=== PATIENT | male | born 1960 | race Caucasian/White ===

== ENCOUNTER 2016-05-29 21:44 | Emergency (ER) | payer OTHER ==
[~2016-05-29] VITALS: Ht 172.7 cm; Wt 108.9 kg
[~2016-05-29 21:44] MED LIST: ALBUAER2 INH; HYDR-5688 PO; LEDI1TAB PO; LISI-461 PO; METF500T5 PO; MONT1TAB3 PO
[2016-05-29 21:49] VITALS: TEMP 36.9
[2016-05-29] MEDS ORDERED: SODIUM CHLORIDE 0.9% 1000ML 1,000 ML IV STA ×2 (22:02)
[2016-05-29] MEDS ORDERED: OPTIRAY 320 IV PRN (22:15)
--- NOTE | 2016-05-29 22:21 | DIAGNOSTIC IMAGING REPORT ---
CHEST ONE VIEW PORTABLE HISTORY: Sepsis COMPARISON: Chest 02/12/2009. FINDINGS: The heart is top normal in size. The lungs are clear. No pleural effusions. No pneumothorax. IMPRESSION: No acute process. Electronically signed by: Richard Gonzalez M.D. 05/29/2016 10:19 PM Dictated Date/Time: 05/29/2016 10:18 PM
[2016-05-29] MEDS ORDERED: VNTHFA/IN INH (22:23)
[2016-05-29] MEDS ORDERED: SNG10 PO (22:23)
[2016-05-29] MEDS ORDERED: FLUT1INH INH (22:23)
[2016-05-29] MEDS ORDERED: LSN20 PO (22:23)
[2016-05-29 22:25] VITALS: Ht 172.7 cm; Wt 108.9 kg
[2016-05-29 22:26] VITALS: O2SAT 96
[2016-05-29] MEDS ORDERED: PRED10TA PO (22:27)
[2016-05-29 22:55] LABS: ISTAT CREATININE 0.7 mg/dl (0.6-1.3); ISTAT HEMOGLOBIN 14.3 g/dl (14.0-18.0); ISTAT IONIZED CALCIUM 1.17 mmol/l (1.12-1.32)
[2016-05-29 23:00] LABS: BASO % 0.3 %; BASO ABS # 0.02 K/uL (0-0.2); COMPLETE YES; EOS % 0.7 %; HEMATOCRIT 42.1 % (42-52); IG% 0.2 %; LYMPH % 23.3 %; MEAN CELL VOLUME 85.9 fL (80-100); MEAN CORPUSCULAR HEMOGLOBIN 30.2 pg (25-34); MEAN CORPUSCULAR HGB CONC 35.2 g/dl (32-36); MEAN PLATELET VOLUME 10.1 fL (7.4-10.4); MONO % 6.2 %; NEUT % 69.3 %; PLATELET COUNT 103 K/uL (130-400); WHITE BLOOD COUNT 6.01 K/uL (4.8-10.8)
[2016-05-29 23:08] LABS: PROTHROMBIN TIME (PATIENT) 10.8 SECONDS (9.0-12.0)
[2016-05-29 23:24] LABS: ALT/SGPT 45 U/L (12-78); AST/SGOT 24 U/L (15-37); BLOOD UREA NITROGEN 16 mg/dl (7-18); BUN/CREATININE RATIO 16.6 (10-20); CARBON DIOXIDE 27 mmol/L (21-32); CHLORIDE 102 mmol/L (98-107); CREATININE 0.99 mg/dl (0.60-1.40); GLUCOSE 150 mg/dl (70-99); MAGNESIUM 1.9 mg/dl (1.8-2.4); POTASSIUM 3.8 mmol/L (3.5-5.1); SODIUM 141 mmol/L (136-145)
[2016-05-29 23:30] LABS: ALB/GLOB RATIO 0.8 (0.9-2); ALKALINE PHOSPHATASE 71 U/L (45-117); CKMB/CK RATIO 1.5 (0-3.0)
[2016-05-30] MEDS ORDERED: MoRPHine SULFATE 4 MG/ML 1 ML CARP\\VIAL IV STA (00:05)
[2016-05-30] MEDS ORDERED: ONDANSETRON INJ 2 MG/ML 2 ML VIAL IV STA (00:05)
[2016-05-30 00:17] LABS: MANUAL MICROSCOPIC REQUIRED? NO; REVIEW REQ? NO; URINE APPEARANCE CLEAR (CLEAR); URINE BILIRUBIN NEG (NEG); URINE COLOR YELLOW; URINE NITRITE NEG (NEG); URINE SPECIFIC GRAVITY 1.042 (1.000-1.030); UROBILINOGEN NEG (NEG); ZZUR CULT IF INDIC CLEAN CATCH YES
[2016-05-30] MEDS ORDERED: CEFTRIAXONE SOD INJ 1 GM ADDVIAL IV STA (00:29)
[2016-05-30 00:47] LABS: INFLUENZA A PCR Neg for Influ A (NEG); INFLUENZA B PCR Neg for Influ B (NEG)
[2016-05-30 02:36] VITALS: BP 172/83; PULSE 82; O2SAT 93
--- NOTE | 2016-05-30 02:48 | EMERGENCY ROOM VISIT NOTE ---
History First contact with patient: 21:53 Chief Complaint: HYPERGLYCEMIA Stated Complaint: DIABETES, SUGAR 300 FOR 3 DAYS Nursing Triage Summary: Pt states DM II, BSG over 300 since Mon evening. Nauseated. Abd pain. Pt states , "I just feel dazed and confused." History of Present Illness The patient is a 56 year old male who presents to the Emergency Room with complaints of polydipsia, polyuria, diplopia, high sugars, left lower quadrant abdominal pain, feeling dazed and confused for the past few days. Patient just finished hepatitis C treatment one month ago. Patient just finished Tamiflu a few days ago for possible flu by the family care doctor. He is currently on a prednisone taper pack. His sugars are in the 300s past few days. Patient had a colonoscopy last year that was normal per patient. No history diverticulitis or diverticulosis. Patient denies chest pain, dyspnea, cough, congestion, headache, vomiting, diarrhea, urinary symptoms. Review of Systems See HPI for pertinent positives & negatives. A total of 10 systems reviewed and were otherwise negative. Past Medical/Surgical History Medical Problems: (1) Diab Emilia Wo Compl, Type Ii Or Unspec Type, Not Uncntrld (2) Hyperlipidemia Nec/Nos (3) Hypertension Nos (4) Mandible Fx Nos-Closed (5) Pneumonia, Organism Nos (6) Tobacco Use Disorder Social History Smoking Status: Former Smoker Alcohol Use: occasionally Drug Use: none Marital Status: Occupation Status: employed Current/Historical Medications Scheduled Fluticasone Furoate-Vilanterol (Breo Ellipta), 1 PUFF INH DAILY Hydrocodone/Acetaminophen 5MG/325MG ([place] 5MG/325MG), 1 TAB PO BID Lisinopril (Lisinopril), 20 MG PO BID Metformin Hcl Er (Glucophage Er), 1,000 MG PO BID Montelukast Sod (Montelukast Sodium), 10 MG PO HS Prednisone (Prednisone), 10 MG PO UD Scheduled PRN Albuterol Hfa (Ventolin Hfa), 2 PUFFS INH Q4H PRN for Wheezing Allergies Coded Allergies: No Known Allergies (Verified , 02/26/16) Physical Exam Vital Signs Date Time Temp Pulse Resp B/P Pulse Ox O2 Delivery O2 Flow Rate FiO2 05/30/16 02:36 82 20 172/83 93 Room Air 05/30/16 02:00 76 178/104 96 Room Air 05/30/16 01:30 74 178/95 95 Room Air 05/30/16 01:00 74 162/82 93 Room Air 05/30/16 00:26 76 20 188/100 97 Room Air 05/29/16 22:30 78 16 220/124 97 Room Air 05/29/16 22:26 96 Room Air 05/29/16 21:49 36.9 81 18 96 Room Air Physical Exam VITALS: Vitals are noted on the nurse's note and reviewed by myself. Vital signs stable. GENERAL: Pleasant male answering questions appropriately, in no acute distress, nondiaphoretic, well-developed well-nourished. SKIN: The skin was without rashes, erythema, edema, or bruising. There is no tenting of the skin. Capillary reflex less than 2 seconds. HEAD: Normocephalic atraumatic. EARS: External auditory canals clear, tympanic membranes pearly bryan without erythema or effusion bilaterally. EYES: Pupils equal round and reactive to light and accommodation. Conjunctivae without injection, sclerae without icterus. Extraocular movements intact. NOSE: Patent, turbinates without inflammation or discharge. MOUTH: Mucous membranes moist. Pharynx without erythema or exudate. Uvula midline. Airway patent. Tongue does not deviate. NECK: Supple without nuchal rigidity. No lymphadenopathy. No thyromegaly. Cervical spine is nontender. No JVD. HEART: Regular rate and rhythm without murmurs gallops or rubs. LUNGS: Clear to auscultation bilaterally without wheezes, rales or rhonchi. No dullness to percussion. No retractions or accessory muscle use. ABDOMEN: Positive bowel sounds x 4. Normal tympanic percussion. Soft, tender to palpation left lower quadrant, protuberant, obese, no CVA tenderness, without masses or organomegaly. Epperson sign negative. No guarding or rebound tenderness. MUSCULOSKELETAL: No muscle atrophy, erythema, or edema noted. NEURO: Patient was alert and oriented to person place and time. Normal sensation to light and sharp touch. No focal neurological deficits. Medical Decision & Procedures Laboratory Results 05/29/16 22:35 Red Blood Count 4.90, Mean Corpuscular Volume 85.9, Mean Corpuscular Hemoglobin 30.2, Mean Corpuscular Hemoglobin Concent 35.2, Mean Platelet Volume 10.1, Neutrophils (%) (Auto) 69.3, Lymphocytes (%) (Auto) 23.3, Monocytes (%) (Auto) 6.2, Eosinophils (%) (Auto) 0.7, Basophils (%) (Auto) 0.3, Neutrophils # (Auto) 4.17, Lymphocytes # (Auto) 1.40, Monocytes # (Auto) 0.37, Eosinophils # (Auto) 0.04, Basophils # (Auto) 0.02 05/29/16 22:35 Test 05/29/16 21:56 05/29/16 22:28 05/29/16 22:35 05/29/16 22:37 Bedside Glucose 153 mg/dl (70-99) Influenza Type A (RT-PCR) Neg for Influ A (NEG) Influenza Type A Antigen Neg for Influ A (NEG) Influenza Type B Antigen Neg for Influ B (NEG) Influenza Type B (RT-PCR) Neg for Influ B (NEG) White Blood Count 6.01 K/uL (4.8-10.8) Red Blood Count 4.90 M/uL (4.7-6.1) Hemoglobin 14.8 g/dL (14.0-18.0) Hematocrit 42.1 % (42-52) Mean Corpuscular Volume 85.9 fL (80-100) Mean Corpuscular Hemoglobin 30.2 pg (25-34) Mean Corpuscular Hemoglobin Concent 35.2 g/dl (32-36) Platelet Count 103 K/uL (130-400) Mean Platelet Volume 10.1 fL (7.4-10.4) Neutrophils (%) (Auto) 69.3 % Lymphocytes (%) (Auto) 23.3 % Monocytes (%) (Auto) 6.2 % Eosinophils (%) (Auto) 0.7 % Basophils (%) (Auto) 0.3 % Neutrophils # (Auto) 4.17 K/uL (1.4-6.5) Lymphocytes # (Auto) 1.40 K/uL (1.2-3.4) Monocytes # (Auto) 0.37 K/uL (0.11-0.59) Eosinophils # (Auto) 0.04 K/uL (0-0.5) Basophils # (Auto) 0.02 K/uL (0-0.2) RDW Standard Deviation 43.8 fL (36.4-46.3) RDW Coefficient of Variation 14.1 % (11.5-14.5) Immature Granulocyte % (Auto) 0.2 % Immature Granulocyte # (Auto) 0.01 K/uL (0.00-0.02) Prothrombin Time 10.8 SECONDS (9.0-12.0) Prothromb Time International Ratio 1.0 (0.9-1.1) Activated Partial Thromboplast Time 25.0 SECONDS (21.0-31.0) Partial Thromboplastin Ratio 1.0 Est Creatinine Clear Calc Drug Dose 98.5 ml/min Estimated GFR () 97.6 Estimated GFR (Non- 84.2 BUN/Creatinine Ratio 16.6 (10-20) Calcium Level 9.0 mg/dl (8.5-10.1) Magnesium Level 1.9 mg/dl (1.8-2.4) Total Bilirubin 0.7 mg/dl (0.2-1) Aspartate Amino Transf (AST/SGOT) 24 U/L (15-37) Alanine Aminotransferase (ALT/SGPT) 45 U/L (12-78) Alkaline Phosphatase 71 U/L (45-117) Total Creatine Kinase 94 U/L (39-308) Creatine Kinase MB 1.4 ng/ml (0.5-3.6) Creatine Kinase MB Ratio 1.5 (0-3.0) Troponin I < 0.015 ng/ml (0-0.045) Total Protein 8.2 gm/dl (6.4-8.2) Albumin 3.7 gm/dl (3.4-5.0) Globulin 4.5 gm/dl (2.5-4.0) Albumin/Globulin Ratio 0.8 (0.9-2) Bedside Hemoglobin 14.3 g/dl (14.0-18.0) Bedside Hematocrit 42 % (42-52) Bedside Sodium 138 mEq/L (135-144) Bedside Potassium 3.9 mEq/L (3.3-5.0) Bedside Chloride 99 mEq/L (101-112) Bedside Total CO2 25 mEq/l (24-31) Anion Gap 19.0 mmol/L (16-25) Bedside Blood Urea Nitrogen 17 mg/dl (7-18) Bedside Creatinine 0.7 mg/dl (0.6-1.3) Bedside Glucose (other) 171 mg/dl (70-99) Bedside Ionized Calcium (Lyle) 1.17 mmol/l (1.12-1.32) Test 05/29/16 23:10 05/29/16 23:45 05/30/16 01:27 Ammonia 21.0 umol/L (11-32) Urine Color YELLOW Urine Appearance CLEAR (CLEAR) Urine pH 6.0 (4.5-7.5) Urine Specific [place] 1.042 (1.000-1.030) Urine Protein NEG (NEG) Urine Glucose (UA) TRACE (NEG) Urine Ketones NEG (NEG) Urine Occult Blood NEG (NEG) Urine Nitrite NEG (NEG) Urine Bilirubin NEG (NEG) Urine Urobilinogen NEG (NEG) Urine Leukocyte Esterase MODERATE (NEG) Urine WBC (Auto) 10-30 /hpf (0-5) Urine RBC (Auto) 0-4 /hpf (0-4) Urine Hyaline Casts (Auto) 0 /lpf (0-5) Urine Epithelial Cells (Auto) 5-10 /lpf (0-5) Urine Bacteria (Auto) NEG (NEG) Bedside Lactic Acid Venous 0.90 mmol/L (0.90-1.70) Medications Administered Medications (Trade) Dose Ordered Sig/Dominique Route Start Time Stop Time Status Last Admin Dose Admin Sodium Chloride 1,000 ml @ 999 mls/hr Q1H1M STAT IV 05/29/16 22:02 05/29/16 23:02 DC 05/29/16 22:38 999 MLS/HR Sodium Chloride (Nss 1000ml) 1,000 ml @ 125 mls/hr Q8H STAT IV 05/29/16 22:02 05/30/16 06:01 05/29/16 22:38 125 MLS/HR Morphine Sulfate (MoRPHine SULFATE INJ) 4 mg NOW STAT IV 05/30/16 00:05 05/30/16 00:06 DC 05/30/16 00:31 4 MG Ondansetron HCl (Zofran Inj) 4 mg NOW STAT IV 05/30/16 00:05 05/30/16 00:06 DC 05/30/16 00:31 4 MG Ceftriaxone Sodium (Rocephin Inj) 1 gm NOW STAT IV 05/30/16 00:29 05/30/16 00:30 DC 05/30/16 01:00 1 GM ED Course Prior records/ancillary studies reviewed. Triage Nursing notes reviewed. The patient's history was concerning for abdominal pain with hyperglycemia and feeling confused. Differential diagnosis: Etiologies such as appendicitis, encephalopathic, DKA, diverticulitis, PUD, biliary pathology, UTI, pancreatitis, obstruction, mesenteric ischemia, aortic pathology, infections, inflammatory bowel disease, renal colic, as well as others were entertained. Physical examination findings: As above. ER treatment provided: IV fluids On reassessment the patient felt better. Diagnostics interpreted by me: ECG: Normal sinus, left axis deviation, incomplete right bundle branch block, no acute ST-T wave changes, rate of 80. Impression incomplete right bundle branch block with left anterior vesicular block interpreted by myself The labs revealed hyperglycemia without DKA. Mildly elevated lactic. Negative troponin. Imaging studies: CHEST ONE VIEW PORTABLE HISTORY: Sepsis COMPARISON: Chest 02/12/2009. FINDINGS: The heart is top normal in size. The lungs are clear. No pleural effusions. No pneumothorax. IMPRESSION: No acute process. Electronically signed by: Richard Gonzalez M.D. No priors CT HEAD: No acute intracranial finding CT ABDOMEN & PELVIS: Cardiomegaly. Hiatal hernia. Suspected atelectasis and/or scar. Questionable tiny nodular opacities at lung bases versus foci of atelectasis and/or scar. Cirrhotic morphology to liver. Splenomegaly compatible with portal hypertension. Perhaps some segments of small bowel stasis but no bowel obstruction. Diverticulosis. No diverticulitis, appendicitis or other acute intra-abdominal process is appreciated. Radiologist: Robert Hill M.D. Exam and history seem consistent with UTI with hyperglycemia most likely from recent steroid use. Repeat lactate was negative. His is most likely elevated due to dehydration from hyperglycemia. Patient was hydrated as above. Patient had bladder infections before. He has had penile surgeries before. Patient was advised to take antibiotics as directed, rest, stay well-hydrated and to monitor his blood sugars. The urine culture was sent. He was advised follow- up family care in a few days or here in the ER sooner for fevers, high blood sugars, chest pain, back pain, worsening signs or symptoms or as needed.By the evaluation outlined above emergent etiologies such as appendicitis, diverticulitis, PUD, biliary pathology, pancreatitis, obstruction, mesenteric ischemia, aortic pathology, inflammatory bowel disease, renal colic, as well as others were deemed relatively unlikely. The pt informed about the findings as listed above. All questions were answered and pleased with the treatment. Return instructions were outlined and the patient was discharged in stable condition. Outpatient prescription management: Bactrim Referral: The patient was referred back to their primary care physician for follow-up in 2 to 3 days for a recheck of the current condition. Case reviewed with my attending. Medical Decision As above Impression Primary Impression: UTI (urinary tract infection) Additional Impressions: Abdominal pain, left lower quadrant Hyperglycemia due to type 2 diabetes mellitus Departure Information Dispostion Home / Self-Care Condition GOOD Referrals Jude Vickers M.D. (PCP) Patient Instructions My [facility] Additional Instructions DO NOT drive, drink alcohol, operate machinery, or perform dangerous activities today. You were given medications in the ER that can affect your ability to safely function or operate a vehicle. Monitor your blood sugar. Drink plenty of fluids to flush your bladder. Trimethoprim-Sulfamethoxazole(Bactrim DS): Take one pill twice daily for 7 days for your urine infection. All antibiotics can cause diarrhea. If this occurs and you feel worse or it does not resolve in 1-2 days follow up with your doctor or return to the Emergency Department as this could be signs of serious underlying problems. Any medication can cause an allergic reaction, stop the pills immediately and return to the ER for rash, hives, breathing difficulties, or swelling. Zofran 4 mg: Take one every six hours as needed for nausea. Avoid alcohol, operating machinery or dangerous equipment, working on ladders or roofs, DRIVING , or situations where being under the influence may be dangerous. Ibuprofen(Motrin, Advil) may be used for fever or pain. Use 600mg every six hours as needed. Take with food. Avoid using more than 2400mg in a 24 hour period. Do not use 2400mg per day for more than three consecutive days without physician direction. Prolonged inappropriate use can lead to stomach upset or ulcers. (AND/OR) Acetaminophen(Tylenol) may be used for fever or pain. Use 1000mg every six hours as needed. Avoid using more than 3000mg in a 24 hour period. Rest and drink plenty of fluids as tolerated. Slow sips of water or sports drinks are recommended instead of large amounts all at once. Continue current medications. Once your stomach is settled start with a clear liquid diet (jello, soup broth, etc.) and then advance as tolerated. You should avoid full, heavy meals for about 24 hrs from the time your symptoms resolved. Return to the ER immediately for worsening or persistent abdominal/back pain, vomiting, fevers, worsening of your condition, or as needed. Follow up with your primary physician within 2-3 days for a recheck of the current condition. Problem Qualifiers Primary Impression: UTI (urinary tract infection) Urinary tract infection type: acute cystitis Hematuria presence: without hematuria Qualified Codes: N30.00 - Acute cystitis without hematuria
[2016-05-30] MEDS ORDERED: SULF800T23 PO (02:50)
[2016-05-30] MEDS ORDERED: ONDANSETRON HOME PACK 4MG OD TAB PO ONE (03:00)
[2016-05-30] MEDS ORDERED: SEPTRA DS HOME PACK 1 EA VIAL PO ONE (03:00)
--- NOTE | 2016-05-30 06:26 | DIAGNOSTIC IMAGING REPORT ---
HEAD CT NONCONTRAST CT DOSE: 2364.86 mGy.cm HISTORY: Headache confused, recent Hep C txt TECHNIQUE: Multiaxial CT images of the head were performed without the use of intravenous contrast. Comparison: None. Findings: The paranasal sinuses and mastoid air cells are clear. The calvarium and skull base are intact. The ventricles and sulci are within normal limits. There is no mass, hematoma, midline shift, or acute infarct. Impression: No acute intracranial abnormality. Electronically signed by: Jude Carnes M.D. 05/30/2016 6:25 AM Dictated Date/Time: 05/30/2016 6:24 AM
--- NOTE | 2016-05-30 06:41 | DIAGNOSTIC IMAGING REPORT ---
CT OF THE ABDOMEN AND PELVIS WITH CONTRAST CLINICAL HISTORY: Left lower quadrant pain. Confusion. Hepatitis C. COMPARISON STUDY: None. TECHNIQUE: Following IV administration of 92 mL of Optiray-320, axial images of the abdomen and pelvis were obtained from the lung bases to the proximal femurs. Images were reviewed in the axial, sagittal, and coronal planes. IV contrast was administered without complication. FINDINGS: Visualized portions of the lower lungs demonstrate mild groundglass opacities, greater within the right lung. A few nodular opacities are present. There is no pneumatosis, free air or portal venous gas. The heart is moderately enlarged. The liver is cirrhotic. Sensitivity for detection of hypervascular lesions is diminished on this exam. No hepatic lesions are identified. The main, left and right portal veins are patent. There is moderate splenomegaly. The adrenal glands, kidneys and pancreas are normal. There is no hydronephrosis. There are small collaterals, including paraesophageal varices. There is no evidence for a bowel obstruction. There is left colon diverticulosis without evidence for acute diverticulitis. There is no ascites. There is no lymphadenopathy. No suspicious skeletal lesions are identified. IMPRESSION: 1. Cirrhosis with manifestations of portal hypertension including moderate splenomegaly and varices formation. 2. No acute process within the abdomen or pelvis. 3. Mild groundglass and tree-in-bud nodules within visualized portions of the right lower and middle lobes. This could reflect atelectasis or a mild infectious process such to bronchiolitis. Electronically signed by: Dusty George M.D. 05/30/2016 6:40 AM Dictated Date/Time: 05/30/2016 6:34 AM
[2016-06-01] MEDS ORDERED: AMLO-110 PO (14:51)
[2016-06-01] MEDS ORDERED: LEVO-459 PO (14:51)
== END 2016-05-30 03:00 | disposition home or self-care (01) ==
LOC: C.EDB 21:45 → C.EDC 05-30 03:00
DX: N30.00 Acute cystitis without hematuria (principal); R10.32 Left lower quadrant pain; E11.65 Type 2 diabetes mellitus with hyperglycemia; E78.5 Hyperlipidemia, unspecified; I10 Essential (primary) hypertension; Z87.891 Personal history of nicotine dependence; Z79.52 Long term (current) use of systemic steroids; Z79.899 Other long term (current) drug therapy

== ENCOUNTER 2016-05-30 09:38 | Observation (INO) | payer OTHER ==
[~2016-05-30] VITALS: Ht 172.7 cm; Wt 110.1 kg
[~2016-05-30 09:38] MED LIST changes: -ALBUAER2 INH; +FLUT1INH INH; -LEDI1TAB PO; -LISI-461 PO; +LSN20 PO; -MONT1TAB3 PO; +PRED10TA PO; +SNG10 PO; +SULF800T23 PO; +VNTHFA/IN INH
[2016-05-30] MEDS ORDERED: ONDANSETRON INJ 2 MG/ML 2 ML VIAL IV STA (10:47)
[2016-05-30] MEDS ORDERED: SODIUM CHLORIDE 0.9% 1000ML 1,000 ML IV ONE (10:47)
[2016-05-30] MEDS ORDERED: VANCOMYCIN 1GM/270ML NSS IV STA (10:47)
[2016-05-30] MEDS ORDERED: PIPERACILLIN/TAZOBACTAM 4.5 GM/100ML D5W IV STA (10:47)
[2016-05-30] MEDS ORDERED: METHYLPREDNISOLONE 125 MG VIAL IV STA (10:47)
[2016-05-30] MEDS ORDERED: DiphenhydrAMINE HCL 50 MG/ML VIAL IV STA (10:47)
[2016-05-30] MEDS ORDERED: RANITIDINE HCL 150 MG TAB PO STA (10:47)
--- NOTE | 2016-05-30 10:57 | EMERGENCY ROOM VISIT NOTE ---
History Report prepared by Carlitos: Eddi Arredondo Under the Supervision of: Dr. Manuel Velez M.D. First contact with patient: 09:57 Chief Complaint: ALLERGIC REACTION Stated Complaint: ALLERGIC REACTION TO MEDICATION GIVEN IN THE ER Nursing Triage Summary: Nausea, dizzy, neck and abdominal pain. "I think I'm allergic to something they gave me last night." per the pt. pt reports here last night for high bsg and bp treated and released. returned today for back and adb pain. pt is red all over. took 1 benadryl and 1 vicodin for pain this am at 0700 History of Present Illness The patient is a 56 year old male who presents to the Emergency Room with complaints of an acute allergic reaction that started last night. The patient complains of itchy red skin which started after taking Bactrim. He was started on Bactrim last night after being diagnosed with a UTI . The patient also complains of upper respiratory symptoms and hyperglycemia. The patient denies any ulcers of the mouth. The patient is currently nauseous, and also complains of neck and back pain. Source of History: patient Onset: last night Position: other (global) Quality: other (allergic reaction) Timing: other (acute) Associated Symptoms: + back pain, + nausea, + neck pain, + rash Review of Systems See HPI for pertinent positives & negatives. A total of 10 systems reviewed and were otherwise negative. Past Medical & Surgical Medical Problems: (1) COPD (chronic obstructive pulmonary disease) (2) Diab Emilia Wo Compl, Type Ii Or Unspec Type, Not Uncntrld (3) DM type 2 (diabetes mellitus, type 2) (4) Hepatitis C (5) HTN (hypertension) (6) Hyperlipidemia Nec/Nos (7) Hypertension Nos (8) Mandible Fx Nos-Closed (9) Pneumonia, Organism Nos (10) Tobacco Use Disorder (11) Urethral stricture Family History No pertinent family history Social History Smoking Status: Former Smoker Alcohol Use: occasionally Drug Use: none Marital Status: Occupation Status: employed Current/Historical Medications Scheduled Fluticasone Furoate-Vilanterol (Breo Ellipta), 1 PUFF INH DAILY Hydrocodone/Acetaminophen 5MG/325MG (Mammoth 5MG/325MG), 1 TAB PO BID Lisinopril (Lisinopril), 20 MG PO BID Metformin Hcl Er (Glucophage Er), 1,000 MG PO BID Montelukast Sod (Montelukast Sodium), 10 MG PO HS Sulfa/Trimethoprim (Bactrim Ds 800MG/160MG), 1 TAB PO BID Scheduled PRN Albuterol Hfa (Ventolin Hfa), 2 PUFFS INH Q4H PRN for Wheezing Allergies Coded Allergies: Sulfamethoxazole w/Trimethoprim (Unverified Allergy, Unknown, RASH, UPSET STOMACH, 05/30/16) Physical Exam Vital Signs Date Time Temp Pulse Resp B/P Pulse Ox O2 Delivery O2 Flow Rate FiO2 05/30/16 17:00 36.8 84 18 124/74 92 Room Air 05/30/16 16:54 87 18 139/68 94 05/30/16 16:30 111 18 157/70 96 Room Air 05/30/16 14:31 106 127/58 93 05/30/16 13:30 97 Room Air 05/30/16 12:28 109 18 123/59 98 Nebulizer 7.0 05/30/16 11:35 104 14 97 Room Air 05/30/16 11:30 103 155/74 95 05/30/16 10:56 96 Room Air 05/30/16 10:28 103 05/30/16 10:18 93 Room Air 05/30/16 09:48 36.8 90 20 115/78 93 Room Air Physical Exam GENERAL: Patient is a healthy-appearing well-nourished HEAD: Normocephalic atraumatic EYES: Ocular movements intact pupils equal and react to light OROPHARYNX mucous membranes are moist no exudates present no erythema or edema present. No oral mucosal lesions on exam. NECK: Supple no nuchal rigidity CHEST: Good equal expansion LUNGS: Clear and equal to auscultation CARDIAC: Normal S1 and S2 ABDOMEN: Soft nontender no guarding BACK: No CVA tenderness EXTREMITIES: No pain upon palpation normal muscle strength in all groups no clubbing cyanosis or edema NEURO: Patient is following commands is answering questions appropriately. Alert and oriented x3 Cranial Nerves 2-12 grossly intact Medical Decision & Procedures ER Provider Diagnostic Interpretation: X-ray results as stated below per interpretation by me and the radiologist: CHEST ONE VIEW PORTABLE HISTORY: Sepsis COMPARISON: Chest 05/29/2016. FINDINGS: The heart remains mildly enlarged. No focal lung consolidations. No evidence for pulmonary edema. No pleural effusions. No pneumothorax. Faint patchy density right lung base. IMPRESSION: 1. Patchy density at the right lung base which may represent a developing pneumonitis. 2. Mild cardiomegaly, unchanged. Electronically signed by: Richard Gonzalez M.D. 05/30/2016 12:28 PM Dictated Date/Time: 05/30/2016 12:26 PM Laboratory Results Test 05/30/16 10:00 05/30/16 11:37 05/30/16 12:25 05/30/16 13:23 Immature Granulocyte % (Auto) 0.4 % White Blood Count 9.76 K/uL (4.8-10.8) Red Blood Count 5.20 M/uL (4.7-6.1) Hemoglobin 15.8 g/dL (14.0-18.0) Hematocrit 44.9 % (42-52) Mean Corpuscular Volume 86.3 fL (80-100) Mean Corpuscular Hemoglobin 30.4 pg (25-34) Mean Corpuscular Hemoglobin Concent 35.2 g/dl (32-36) Platelet Count 163 K/uL (130-400) Mean Platelet Volume 11.0 fL (7.4-10.4) Neutrophils (%) (Auto) 83.9 % Lymphocytes (%) (Auto) 12.7 % Monocytes (%) (Auto) 2.7 % Eosinophils (%) (Auto) 0.3 % Basophils (%) (Auto) 0.0 % Neutrophils # (Auto) 8.19 K/uL (1.4-6.5) Lymphocytes # (Auto) 1.24 K/uL (1.2-3.4) Monocytes # (Auto) 0.26 K/uL (0.11-0.59) Eosinophils # (Auto) 0.03 K/uL (0-0.5) Basophils # (Auto) 0.00 K/uL (0-0.2) Immature Granulocyte # (Auto) 0.04 K/uL (0.00-0.02) Prothrombin Time 11.1 SECONDS (9.0-12.0) Prothromb Time International Ratio 1.0 (0.9-1.1) Activated Partial Thromboplast Time 23.4 SECONDS (21.0-31.0) Partial Thromboplastin Ratio 0.9 Total Bilirubin 1.0 mg/dl (0.2-1) Aspartate Amino Transf (AST/SGOT) 42 U/L (15-37) Alanine Aminotransferase (ALT/SGPT) 59 U/L (12-78) Alkaline Phosphatase 70 U/L (45-117) Total Protein 7.8 gm/dl (6.4-8.2) Albumin 3.5 gm/dl (3.4-5.0) Globulin 4.3 gm/dl (2.5-4.0) Albumin/Globulin Ratio 0.8 (0.9-2) Bedside Lactic Acid Venous 2.45 mmol/L (0.90-1.70) Urine Color DK YELLOW Urine Appearance CLOUDY (CLEAR) Urine pH 5.0 (4.5-7.5) Urine Specific Warren 1.045 (1.000-1.030) Urine Protein NEG (NEG) Urine Glucose (UA) NEG (NEG) Urine Ketones TRACE (NEG) Urine Occult Blood NEG (NEG) Urine Nitrite POS (NEG) Urine Bilirubin NEG (NEG) Urine Urobilinogen NEG (NEG) Urine Leukocyte Esterase MODERATE (NEG) Urine WBC (Auto) 10-30 /hpf (0-5) Urine RBC (Auto) 0-4 /hpf (0-4) Urine Hyaline Casts (Auto) 5-10 /lpf (0-5) Urine Epithelial Cells (Auto) 10-20 /lpf (0-5) Urine Bacteria (Auto) 1+ (NEG) Urine Renal Epithelial Cells /lpf (0-5) Urine Crystals CALCIUM OXALATE (NONE Urine Pathogenic Casts /lpf (0) Influenza Type A (RT-PCR) Uninterpretable (NEG) Influenza Type A Antigen Uninterpretable (NEG) Influenza Type B Antigen Uninterpretable (NEG) Influenza Type B (RT-PCR) Uninterpretable (NEG) Labs reviewed by ED physician. Medications Administered Medications (Trade) Dose Ordered Sig/Dominique Route Start Time Stop Time Status Last Admin Dose Admin Sodium Chloride (Nss 1000ml) 1,000 ml @ 999 mls/hr Q1H1M ONCE IV 05/30/16 10:47 05/30/16 11:47 DC 05/30/16 11:19 999 MLS/HR Piperacillin Sod/ Tazobactam Sod (Zosyn Iv) 4.5 gm ONE STAT IV 05/30/16 10:47 05/30/16 10:53 DC 05/30/16 11:27 4.5 GM Vancomycin HCl (Vancomycin 1gm/ 270ml Nss) 1 gm ONE STAT IV 05/30/16 10:47 05/30/16 10:53 DC 05/30/16 12:00 1 GM Methylprednisolone Sodium Succinate (Solu-Medrol IV) 125 mg NOW STAT IV 05/30/16 10:47 05/30/16 10:53 DC 05/30/16 11:20 125 MG Diphenhydramine HCl (Benadryl Inj) 50 mg NOW STAT IV 05/30/16 10:47 05/30/16 10:53 DC 05/30/16 11:22 50 MG Ranitidine HCl (zANTac TAB) 150 mg NOW STAT PO 05/30/16 10:47 05/30/16 10:53 DC 05/30/16 11:23 150 MG Ondansetron HCl (Zofran Inj) 4 mg NOW STAT IV 05/30/16 10:47 05/30/16 10:53 DC 05/30/16 11:20 4 MG Albuterol/ Ipratropium 12 ml 12 ml ONE ONCE INH 05/30/16 11:00 05/30/16 11:01 DC 05/30/16 11:34 12 ML Sodium Chloride (Nss 1000ml) 1,000 ml @ 100 mls/hr Q10H IV 05/30/16 14:00 06/29/16 13:59 05/31/16 05:45 100 MLS/HR Albuterol/ Ipratropium (Duoneb) 3 ml QIDR INH 05/30/16 16:00 06/29/16 15:59 05/31/16 07:21 3 ML ECG Indication: nausea Rate (beats per minute): 104 Rhythm: sinus tachycardia Findings: PVC, no acute ischemic change ED Course 1044: Past medical records reviewed. The patient was evaluated in room A11b. A complete history and physical examination was performed. 1047: Zofran 4 mg IV, Zantac 150 mg PO, Benadryl 50 mg IV, Solu-Medrol 125 mg IV , Vancomycin 1 gm / 270 ml NSS IV, Zosyn 4.5 gm IV, NSS 1000 ml @ 999 mls/hr. 1100: DuoNeb 12 ml INH. 1316: Spoke with Magan Power Hospitalist. The patient will be evaluated. Medical Decision Differential diagnosis: Etiologies such as allergic reaction, anaphylaxis, urticaria, Bateman-Karan syndrome, toxic epidermal necrolysis, erythema multiforme, cellulitis, as well as others were entertained. This is a 56-year-old male who presents emergency department complaining of allergic reaction. The patient recently started Bactrim and has a diffuse red rash all over his body. In addition the patient also has a urinary tract infection as well as an upper respiratory tract infection. Based on these findings, the patient was given Solu-Medrol as well as antibiotics. Repeat examination revealed improvement the patient's symptoms. As Bateman-Karan is certainly in the differential I feel that the patient should probably be admitted at least for observation. I did discuss the case with the hospitalist service who were in agreement with treatment plan. Consults Time Called: 1309 Consulting Physician: Magan Power Returned Call: [phone]: Spoke with Magan Power. The patient will be evaluated Impression Primary Impression: Allergic reaction Additional Impressions: UTI (urinary tract infection) URI (upper respiratory infection) Scribe Attestation The scribe's documentation has been prepared under my direction and personally reviewed by me in its entirety. I confirm that the note above accurately reflects all work, treatment, procedures, and medical decision making performed by me. Departure Information Dispostion Being Evaluated By Hospitalist Referrals Jude Vickers M.D. (PCP) Patient Instructions My [facility] Problem Qualifiers Primary Impression: Allergic reaction Encounter type: initial encounter Qualified Codes: T78.40XA - Allergy, unspecified, initial encounter Additional Impressions: UTI (urinary tract infection) Urinary tract infection type: acute cystitis Hematuria presence: without hematuria Qualified Codes: N30.00 - Acute cystitis without hematuria URI (upper respiratory infection) URI type: unspecified viral URI Qualified Codes: J06.9 - Acute upper respiratory infection, unspecified; B97.89 - Other viral agents as the cause of diseases classified elsewhere
[2016-05-30] MEDS ORDERED: ALBUT/IPRATROP 3MG/0.5MG NEB 3 ML VIAL INH ONE (11:00)
[2016-05-30 11:11] LABS: PARTIAL THROMBOPLASTIN RATIO 0.9; PROTHROMBIN TIME (PATIENT) 11.1 SECONDS (9.0-12.0)
[2016-05-30 11:14] LABS: BUN/CREATININE RATIO 12.7 (10-20); CALCIUM 8.8 mg/dl (8.5-10.1); CREATININE 1.4 mg/dl (0.60-1.40); POTASSIUM 3.7 mmol/L (3.5-5.1)
[2016-05-30 11:17] LABS: ALB/GLOB RATIO 0.8 (0.9-2)
[2016-05-30 11:24] LABS: COMPLETE YES; EOS % 0.3 %; HEMATOCRIT 44.9 % (42-52); IG% 0.4 %; LYMPH % 12.7 %; LYMPH ABS # 1.24 K/uL (1.2-3.4); MEAN CELL VOLUME 86.3 fL (80-100); MEAN CORPUSCULAR HEMOGLOBIN 30.4 pg (25-34); MEAN CORPUSCULAR HGB CONC 35.2 g/dl (32-36); MONO % 2.7 %; NEUT % 83.9 %; PLATELET COUNT 163 K/uL (130-400); WHITE BLOOD COUNT 9.76 K/uL (4.8-10.8)
[2016-05-30 11:35] VITALS: PULSE 104; O2SAT 97
--- NOTE | 2016-05-30 12:30 | DIAGNOSTIC IMAGING REPORT ---
CHEST ONE VIEW PORTABLE HISTORY: Sepsis COMPARISON: Chest 05/29/2016. FINDINGS: The heart remains mildly enlarged. No focal lung consolidations. No evidence for pulmonary edema. No pleural effusions. No pneumothorax. Faint patchy density right lung base. IMPRESSION: 1. Patchy density at the right lung base which may represent a developing pneumonitis. 2. Mild cardiomegaly, unchanged. Electronically signed by: Richard Gonzalez M.D. 05/30/2016 12:28 PM Dictated Date/Time: 05/30/2016 12:26 PM
[2016-05-30 12:36] LABS: URINE APPEARANCE CLOUDY (CLEAR); URINE COLOR DK YELLOW; URINE NITRITE POS (NEG); URINE SPECIFIC GRAVITY 1.045 (1.000-1.030); UROBILINOGEN NEG (NEG); ZZUR CULT IF INDIC CLEAN CATCH YES
[2016-05-30 13:00] LABS: MANUAL MICROSCOPIC REQUIRED? NO; REVIEW REQ? YES; URINE BILIRUBIN NEG (NEG)
[2016-05-30 13:30] VITALS: O2SAT 97; BMI 36.9
[2016-05-30] MEDS ORDERED: ACETAMINOPHEN 325 MG TAB PO PRN (14:00)
[2016-05-30] MEDS ORDERED: ONDANSETRON INJ 2 MG/ML 2 ML VIAL IV PRN (14:00)
[2016-05-30] MEDS ORDERED: GLUCAGON FOR INJ 1 MG VIAL SQ PRN (14:15)
[2016-05-30] MEDS ORDERED: GLUCOSE 40% GEL 15 GM TUBE PO PRN (14:15)
[2016-05-30] MEDS ORDERED: DEXTROSE 50% 50 ML SYR IV PRN (14:15)
[2016-05-30] MEDS ORDERED: GLUCOSE 10 TABS/TUBE PO PRN (14:15)
[2016-05-30] MEDS ORDERED: IV FLUIDS COMPLETED PRN (14:30)
--- NOTE | 2016-05-30 14:32 | Pharmacy Progress Note ---
ED Pharmacist Progress Note Date of Service: May 30, 2016. Allergy assessment Subjective * Patient reports he took pills at 0700 today, including Bactrim. He noted this is the first dose of the Bactrim he took that was provided for him by ED ( home pack). Within 5 minutes, had severe coughing, SOB, chest tightness, rash. * Patient reports he does not remember ever having a rash before, independent of whether he was on antibiotics at the time Objective Medication administration history * Bactrim * 10 day course prescribed in 2008 for L pinna infection * Ceftriaxone * 1x dose in 2010 * 1x dose 05/30/16 @ 0100 in ED * Cephalexin * 10 day course prescribed in 2008 for L pinna infection * ED home pack provided in 2009 Assessment * Ceftriaxone allergy potential * Patient received one-time dose prior, which may have sensitized him. No reaction at that time does not eliminate potential for immediate hypersensitivity reaction as this was only a one-time dose. * Current symptoms manifested 6 hr after administration * Most immediate hypersensitivity reactions occur within 1 hr, but can take up to 72 hours * Bactrim allergy potential * No reaction reported from previous 10 day course * Current symptoms manifested 5 minutes after administration * Bateman-Karan reaction usually will not manifest until at least 48 hours in patients who have been exposed previously * Beta-lactam allergy (other than ceftriaxone) potential * Patient has received cephalexin on two separate occasions in 2008, 2009. No reaction reported. * If patient has a true allergy to ceftriaxone (per above), they still may be able to tolerate other beta-lactams (but should be monitored closely) Conclusion * Cannot conclusively determine cause of symptoms, but could be due to one of the following: * Ceftriaxone * Bactrim
[2016-05-30] MEDS ORDERED: PHARMACY GLYCEMIC MGMT CONSULT SCH (14:43)
[2016-05-30] MEDS ORDERED: DiphenhydrAMINE HCL 50 MG/ML VIAL IV PRN (14:45)
[2016-05-30] MEDS ORDERED: ALBUT/IPRATROP 3MG/0.5MG NEB 3 ML VIAL INH PRN (15:00)
--- NOTE | 2016-05-30 15:24 | Pharmacy Progress Note ---
Glycemic Control Intl Consult Date of Service May 30, 2016. Scope Glycemic Pharmacist consulted by Dr. Reeves on 05/30/16 for glycemic control and to write orders per [facility] inpatient glycemic control protocol Objective Weight (Kilograms): 110.100 Accuchecks BSG (last 24hrs): Test 05/30/16 10:00 Random Glucose 227 mg/dl (70-99) Laboratory Data (last 24hrs) Test 05/30/16 10:00 Anion Gap 10.0 mmol/L BUN/Creatinine Ratio 12.7 Blood Urea Nitrogen 18 mg/dl Creatinine 1.40 mg/dl Potassium Level 3.7 mmol/L Sodium Level 137 mmol/L White Blood Count 9.76 K/uL Red Blood Count 5.20 M/uL Hemoglobin 15.8 g/dL Hematocrit 44.9 % Mean Corpuscular Volume 86.3 fL Mean Corpuscular Hemoglobin 30.4 pg Mean Corpuscular Hemoglobin Concent 35.2 g/dl Platelet Count 163 K/uL Mean Platelet Volume 11.0 fL Neutrophils (%) (Auto) 83.9 % Lymphocytes (%) (Auto) 12.7 % Monocytes (%) (Auto) 2.7 % Eosinophils (%) (Auto) 0.3 % Basophils (%) (Auto) 0.0 % Neutrophils # (Auto) 8.19 K/uL Lymphocytes # (Auto) 1.24 K/uL Monocytes # (Auto) 0.26 K/uL Eosinophils # (Auto) 0.03 K/uL Basophils # (Auto) 0.00 K/uL Recent Pertinent Medications Outpatient Anti-diabetic Regimen: * Metformin 1gm BIDM * No current A1c to evaluate. Will order with tomorrow's AM labs. Risk Factors for Insulin Resistance: * Steroids: Solu-medrol 125mg IV x 1 then prednisone taper. * Diet: DM2/AHA Assessment & Plan ASSESSMENT: * ADA & AACE recommend a goal blood sugar range 140-180 mg/dl for the majority of critically ill & non-critically ill patients. However, more stringent targets may be selected in individual cases. * 56 yo male admitted s/p allergic rxn to Bactrim possibly. * Last A1c on record from 2014 indicates well controlled BSGs as an outpatient. Pt only takes Metformin. Will place on hold during admission d/t increased risk for drug interactions, difficulty titrating, and variability of acute setting. * D/t allergic rxn the pt is ordered a steroid taper. He received a dose of solu-medrol 125mg IV x 1 in the ED. Then to begin Prednisone 40mg taper starting tomorrow. Insulin needs will likely be heightened during steroid taper. * Will construct a basal/bolus regimen considering steroid administration + weight based dosing. * Add an overnight Novolog check in case insulin needs are underestimated. PLAN FOR INPATIENT GLYCEMIC CONTROL: * Start Lantus X 1 TONIGHT based upon BSG scale: * BSG 120 mg/dl and below: 0 units * BSG 121 mg/dl to 180 mg/dl: 10 units * BSG 181 mg/dl and above: 20 units * Start Lantus qAM based upon BSG scale: * BSG 120 mg/dl and below: 0 units * BSG 121 mg/dl to 180 mg/dl: 10 units * BSG 181 mg/dl and above: 15 units * Novolog ACHS + 02 * Set correction factor to 25 mg/dl/unit * Set carb ratio to 1 unit per 9 grams CHO consumed * Set goal range to Low 110 mg/dL - High 150 mg/dL * Please note that the plan above was derived based on current level of insulin resistance and hospital stress. These recommendations are appropriate for inpatient admission only. Plan of care upon discharge will need to be reassessed to avoid potential outpatient hypo/hyperglycemia. Thank you.
[2016-05-30 15:32] LABS: INFLUENZA A PCR Uninterpretable (NEG); INFLUENZA B PCR Uninterpretable (NEG)
--- NOTE | 2016-05-30 15:57 | History and Physical ---
History & Physical Date & Time of Service: May 30, 2016 at 15:16 Chief Complaint: Allergic Reaction Primary Care Physician: Jude Vickers M.D. History of Present Illness 56 year old male who presents to the ER with an allergic reaction. Patient was seen in the ER last evening for URI and UTI type symptoms. Patient was given a dose of IV Rocephin and discharged on Bactrim. Patient took his first home dose of Bactrim this AM and within a few minutes broke out in a diffuse, red, rash. He reports associated nausea and vomiting. No shortness of breath, stridor, mouth soreness, or throat closing. Patient took a Benadryl at home. Of note, patient received courses of Bactrim in 11/2015 and 05/2015 for UTIs. Both cultures grew group B beta strep. On 05/21, patient was seen by his PCP for UTI symptoms. He was suspected to have the flu and was given Tamiflu and prednisone taper for back pain. Patient reports minimal improvement in his symptoms after completing the Tamiflu. Patient reports cough productive for yellow/white/blood tinged mucous. He has chronic shortness of breath at baseline due to COPD and feels it is mildly worse. Patient reports gets UTIs usually at least once a year. He reports a history of ureteral stricture. He reports that over the past few months he has had dysuria and frequency. He notes no improvement since taking the prior courses of antibiotics. He denies hematuria. He has chronic neck and back pain which are unchanged. He reports some mid and left sided abdominal pain. No constipation or diarrhea. Feels his abdomen is more distended than normal. He has had chills at home but did not take his temperature. He denies lightheadedness, dizziness, diaphoresis, or syncopal events. In the ER, patient's vitals are stable. He was treated with IV Benadryl , Zantac, Solumedrol, Vanco, Zosyn, neb, and IVF. Rash is improving. Past Medical/Surgical History Medical Problems: (1) COPD (chronic obstructive pulmonary disease) Status: Chronic (2) DM type 2 (diabetes mellitus, type 2) Status: Chronic (3) Hepatitis C Status: Chronic completed Harvoni treatment (4) HTN (hypertension) Status: Chronic (5) Urethral stricture Permanent Comment: s/p surgery Status: Chronic Family History negative for premature CAD or DM Social History Smoking Status: Former Smoker Alcohol Use: none Immunizations History of Influenza Vaccine: Yes Influenza Vaccine Date: Feb 16, 2016 History of Tetanus Vaccine?: Yes Tetanus Immunization Date: Oct 17, 2015 History of Pneumococcal: Yes Pneumococcal Date: Jul 18, 2015 History of Hepatitis B Vaccine: Yes Hepatitis Immunization Date: Feb 28, 2016 Multi-Drug Resistant Organisms History of MDRO: No Allergies Coded Allergies: Sulfamethoxazole w/Trimethoprim (Unverified Allergy, Unknown, RASH, UPSET STOMACH, 05/30/16) Home Medications Scheduled Fluticasone Furoate-Vilanterol (Breo Ellipta), 1 PUFF INH DAILY Hydrocodone/Acetaminophen 5MG/325MG (Russell 5MG/325MG), 1 TAB PO BID Lisinopril (Lisinopril), 20 MG PO BID Metformin Hcl Er (Glucophage Er), 1,000 MG PO BID Montelukast Sod (Montelukast Sodium), 10 MG PO HS Sulfa/Trimethoprim (Bactrim Ds 800MG/160MG), 1 TAB PO BID Scheduled PRN Albuterol Hfa (Ventolin Hfa), 2 PUFFS INH Q4H PRN for Wheezing Review of Systems 10 point review of systems was completed with the pertinent positives and negatives noted per the HPI Physical Exam Vital Signs Date Time Temp Pulse Resp B/P Pulse Ox O2 Delivery O2 Flow Rate FiO2 05/30/16 14:31 106 127/58 93 05/30/16 13:30 97 Room Air 05/30/16 12:28 109 18 123/59 98 Nebulizer 7.0 05/30/16 11:35 104 14 97 Room Air 05/30/16 11:30 103 155/74 95 05/30/16 10:56 96 Room Air 05/30/16 10:28 103 05/30/16 10:18 93 Room Air 05/30/16 09:48 36.8 90 20 115/78 93 Room Air General Appearance: no apparent distress (ill appearing) Head: normocephalic Eyes: normal inspection ENT: normal ENT inspection, + pertinent finding (no mouth sores or pharyngeal edema/erythema) Respiratory/Chest: no respiratory distress, + pertinent finding (coarse breath sounds BL bases) Cardiovascular: no edema, + tachycardia (mild, HR 90s-low 100s, regular rhythm) Abdomen/GI: normal bowel sounds, soft, + tenderness (periumbilical, left abdomen ) Extremities/Musculoskelatal: normal inspection, no calf tenderness Neurologic/Psych: no motor/sensory deficits, alert, normal mood/affect, oriented x 3 Skin: + pertinent finding (diffuse, flat, blanching red rash noted over trunk and BLUE) Diagnostics Laboratory Results Results Past 24 Hours Test 05/30/16 10:00 05/30/16 11:37 05/30/16 12:25 05/30/16 13:23 Range/Units White Blood Count 9.76 4.8-10.8 K/uL Red Blood Count 5.20 4.7-6.1 M/uL Hemoglobin 15.8 14.0-18.0 g/dL Hematocrit 44.9 42-52 % Mean Corpuscular Volume 86.3 80-100 fL Mean Corpuscular Hemoglobin 30.4 25-34 pg Mean Corpuscular Hemoglobin Concent 35.2 32-36 g/dl Platelet Count 163 130-400 K/uL Mean Platelet Volume 11.0 7.4-10.4 fL Neutrophils (%) (Auto) 83.9 % Lymphocytes (%) (Auto) 12.7 % Monocytes (%) (Auto) 2.7 % Eosinophils (%) (Auto) 0.3 % Basophils (%) (Auto) 0.0 % Neutrophils # (Auto) 8.19 1.4-6.5 K/uL Lymphocytes # (Auto) 1.24 1.2-3.4 K/uL Monocytes # (Auto) 0.26 0.11-0.59 K/uL Eosinophils # (Auto) 0.03 0-0.5 K/uL Basophils # (Auto) 0.00 0-0.2 K/uL RDW Standard Deviation 45.2 36.4-46.3 fL RDW Coefficient of Variation 14.4 11.5-14.5 % Immature Granulocyte % (Auto) 0.4 % Immature Granulocyte # (Auto) 0.04 0.00-0.02 K/uL Prothrombin Time 11.1 9.0-12.0 SECONDS Prothromb Time International Ratio 1.0 0.9-1.1 Activated Partial Thromboplast Time 23.4 21.0-31.0 SECONDS Partial Thromboplastin Ratio 0.9 Sodium Level 137 136-145 mmol/L Potassium Level 3.7 3.5-5.1 mmol/L Chloride Level 101 98-107 mmol/L Carbon Dioxide Level 26 21-32 mmol/L Anion Gap 10.0 3-11 mmol/L Blood Urea Nitrogen 18 7-18 mg/dl Creatinine 1.40 0.60-1.40 mg/dl Est Creatinine Clear Calc Drug Dose 70.0 ml/min Estimated GFR () 64.2 Estimated GFR (Non- 55.4 BUN/Creatinine Ratio 12.7 10-20 Random Glucose 227 70-99 mg/dl Calcium Level 8.8 8.5-10.1 mg/dl Total Bilirubin 1.0 0.2-1 mg/dl Aspartate Amino Transf (AST/SGOT) 42 15-37 U/L Alanine Aminotransferase (ALT/SGPT) 59 12-78 U/L Alkaline Phosphatase 70 45-117 U/L Total Protein 7.8 6.4-8.2 gm/dl Albumin 3.5 3.4-5.0 gm/dl Globulin 4.3 2.5-4.0 gm/dl Albumin/Globulin Ratio 0.8 0.9-2 Bedside Lactic Acid Venous 2.45 0.90-1.70 mmol/L Urine Color DK YELLOW Urine Appearance CLOUDY CLEAR Urine pH 5.0 4.5-7.5 Urine Specific [place] 1.045 1.000-1.030 Urine Protein NEG NEG Urine Glucose (UA) NEG NEG Urine Ketones TRACE NEG Urine Occult Blood NEG NEG Urine Nitrite POS NEG Urine Bilirubin NEG NEG Urine Urobilinogen NEG NEG Urine Leukocyte Esterase MODERATE NEG Urine WBC (Auto) 10-30 0-5 /hpf Urine RBC (Auto) 0-4 0-4 /hpf Urine Hyaline Casts (Auto) 5-10 0-5 /lpf Urine Epithelial Cells (Auto) 10-20 0-5 /lpf Urine Bacteria (Auto) 1+ NEG Urine Renal Epithelial Cells 0-5 /lpf Urine Crystals CALCIUM OXALATE NONE PRSENT Urine Pathogenic Casts 0 /lpf Influenza Type A Antigen Uninterpretable NEG Influenza Type B Antigen Uninterpretable NEG Microbiology Results 05/30/16 Blood Culture, Received Pending 05/30/16 Blood Culture, Received Pending Diagnostic Radiology CXR IMPRESSION: 1. Patchy density at the right lung base which may represent a developing pneumonitis. 2. Mild cardiomegaly, unchanged. Impression Assessment and Plan ALLERGIC REACTION - admit to med/surg - patient received IV Rocephin in the ED last evening and took dose of PO Bactrim this AM and broke out in a rash within minutes - noted patient has received two other courses of Bactrim in 11/2015 and 04/2016 without problems - no airway compromise, rash is improving after treatment in the ED - will continue with taper dose of Prednisone and around the clock Benadryl UTI / PNEUMONIA - patient reports recurrent UTIs due to urethral stricture - last two urine cultures grew group B strep - lung exam consistent with pneumonia; CXR shows possible pneumonitis in the right base - currently afebrile, normal WBC; tachycardia and lactic acidemia likely due to allergic reaction - blood cultures drawn, urine culture obtained from 05/29 ER visit - s/p Vanco and Zosyn in ED; will continue with Levaquin - IVF, follow up lactic acid - nebs DM - hgb a1c 6.1 02/2016 - hold metformin and utilize SSI / Lantus while hospitalized - insulin needs may be higher due to steroids COPD - no wheezing on exam - continue home inhalers HTN - BP controlled, continue Lisinopril DVT PROPHYLAXIS - SCDs DISPO - The patient will be placed as observation status for now until further work up is complete. Advanced Directives Existing Living Will: No Existing Power of Saxophone Player: No VTE Prophylaxis VTE Risk Assessment Done? Y/N: Yes Risk Level: Low Given or contraindicated: SCD's Note ATTENDING ADDENDUM Record reviewed. Patient interviewed and examined. Care coordinated with DONNA Rider. Please refer to her documentation for patient's history. Briefly, 56 YO M with hypertension, DM, hepatitis C, and other problems as noted. Cough over last 2 weeks treated with course of Tamiflu and prednisone; blood sugars elevated at home on steroids Seen in ED last night with elevated blood sugars and malaise. UA suggested UTI. Received dose of ceftriaxone and prescribed TMP/sulfa. Took first dose of TMP/sulfa this morning and subsequently developed diffuse pruritic rash. EXAM: General- appears to be uncomfortable VS- as noted HEENT- anicteric; no oral lesions Lungs- rhonchi right base Heart- RRR Abdomen- + BS, soft, nontender Extremities- no pretibial edema or calf tenderness Neuro- alert Skin- erythematous macular rash trunk and extremities DATA: Random glucose 227. POC lactate 2.45. Other lab studies as noted. CXR- patchy infiltrate right base. ASSESSMENT AND PLAN: Apparent allergic reaction to TMP/sulfa. Received IV methylprednisolone and diphenhydramine in ED. Transition to oral prednisone + diphenhydramine PRN. Received IV vancomycin and piperacillin / tazobactam in ED. Does not appear to be septic. Change antibiotic therapy to levofloxacin to cover urinary tract and possible pneumonia. Serum lactate elevated. Does not appear to be septic. Elevated lactate may be secondary to metformin + acute illness. Follow. Blood sugars have been elevated on recent course of prednisone. Received IV methylprednisolone in ED. Hold metformin. Lantus / NovoLog per protocol. Please refer to PEGGY Reeves's documentation for discussion of other issues. Ever Elizabeth MD ADDENDUM Patient reassessed in the evening. Serum lactate 2.45 --> 4.4 --> 4.2. Blood sugars as high as 404. Serum creatinine 1.7. Vital signs stable. Feels better and looks well. Rash improved. Does not appear to be septic. IV insulin infusion ordered. Recheck PRP and lactate in a.m. .
[2016-05-30] MEDS ORDERED: INSULIN ASPART 100 UNITS/ML 3 ML PEN SC SCH ×2 (16:00→19:15)
[2016-05-30 17:00] VITALS: BP 124/74; PULSE 84; TEMP 36.8; O2SAT 92
[2016-05-30] MEDS ORDERED: INSULIN IV INFUSION PROTOCOL SCH (17:53)
[2016-05-30] MEDS ORDERED: MODERATE STRESS LEVEL ONE (18:00)
[2016-05-30] MEDS ORDERED: INSULIN PROTOCOL GOAL RANGE ONE (18:00)
[2016-05-30] MEDS ORDERED: DC ALL PREVIOUSLY ORDERED DIABETES MEDS ONE (18:00)
[2016-05-30] MEDS ORDERED: SODIUM CHLORIDE 0.9% 500ML 500 ML IV SCH (18:00)
[2016-05-30] MEDS: SODIUM CHLORIDE 0.9% 1000ML 1,000 ML IV SCH (18:31)
[2016-05-30] MEDS: LEVOFLOXACIN / D5W 500 MG in PREMIXED IN D5W 100 ML IV SCH (18:31)
[2016-05-30] MEDS: INSULIN REGULAR 250 UNITS in SODIUM CHLORIDE 0.9% 250ML 250 ML IV SCH ×5 (18:54→23:12)
[2016-05-30] MEDS ORDERED: INSULIN HUMAN REGULAR IV BOLUS 3 UNIT in SYRINGE 0 ML IV SCH (19:00)
[2016-05-30] MEDS: INSULIN ASPART 100 UNITS/ML 3 ML PEN SC SCH ×3 (19:00→20:38)
[2016-05-30 19:11] VITALS: PULSE 91; O2SAT 95
[2016-05-30] MEDS: ALBUT/IPRATROP 3MG/0.5MG NEB 3 ML VIAL INH SCH (19:11)
[2016-05-30 19:24] VITALS: BP 150/76; PULSE 95; TEMP 36.8; O2SAT 95
[2016-05-30] MEDS: HYDROCODONE/ACETAMOPHEN 5/325MG TAB PO SCH (20:40)
[2016-05-30] MEDS ORDERED: NURSING DECISION MEDICATION ORDER SCH (20:45)
[2016-05-30] MEDS ORDERED: INSULIN GLARGINE SOLOSTAR 100 UNITS/ML 3 ML PEN SC ONE (21:00)
[2016-05-30] MEDS ORDERED: MONTELUKAST SOD 10 MG TAB PO SCH (21:00)
[2016-05-30] MEDS ORDERED: INSULIN GLARGINE SOLOSTAR 100 UNITS/ML 3 ML PEN SC SCH (21:00)
[2016-05-30] MEDS ORDERED: LISINOPRIL 20 MG TAB PO SCH (21:00)
[2016-05-30 21:28] LABS: BUN/CREATININE RATIO 14.4 (10-20); CALCIUM 8.4 mg/dl (8.5-10.1); CREATININE 1.7 mg/dl (0.60-1.40); POTASSIUM 4.3 mmol/L (3.5-5.1)
[2016-05-30 21:42] LABS: BETA-HYDROXYBUTYRATE 1.17 mg/dL (0.2-2.81)
[2016-05-31] VITALS (8 sets, daily range): BP systolic 107–193; BP diastolic 50–89; PULSE 74–93; TEMP 36.5–36.8; O2SAT 92–98; Ht 172.7 cm; Wt 110.1 kg
[2016-05-31] MEDS: INSULIN REGULAR 250 UNITS in SODIUM CHLORIDE 0.9% 250ML 250 ML IV SCH ×10 (00:08→13:20)
[2016-05-31] MEDS ORDERED: INSULIN ASPART 100 UNITS/ML 3 ML PEN SC SCH (02:00)
[2016-05-31] MEDS: SODIUM CHLORIDE 0.9% 1000ML 1,000 ML IV SCH ×2 (05:45→09:26)
[2016-05-31 07:08] LABS: BUN/CREATININE RATIO 20.8 (10-20); CALCIUM 8.4 mg/dl (8.5-10.1); CREATININE 0.9 mg/dl (0.60-1.40); POTASSIUM 3.8 mmol/L (3.5-5.1)
[2016-05-31 07:12] LABS: HEMATOCRIT 36.8 % (42-52); MEAN CELL VOLUME 86.2 fL (80-100); MEAN CORPUSCULAR HGB CONC 34.8 g/dl (32-36); PLATELET COUNT 80 K/uL (130-400); PLT ESTIMATE DECREASED; RED BLOOD COUNT 4.27 M/uL (4.7-6.1); WHITE BLOOD COUNT 7.19 K/uL (4.8-10.8)
[2016-05-31] MEDS: ALBUT/IPRATROP 3MG/0.5MG NEB 3 ML VIAL INH SCH ×3 (07:21→20:07)
[2016-05-31 08:04] LABS: ESTIMATED AVERAGE GLUCOSE 186 mg/dl; HA1C FLAG Normal (Normal)
[2016-05-31] MEDS: INSULIN ASPART 100 UNITS/ML 3 ML PEN SC SCH ×5 (08:23→20:51)
[2016-05-31] MEDS ORDERED: INSULIN GLARGINE SOLOSTAR 100 UNITS/ML 3 ML PEN SC SCH ×2 (09:00→21:03)
[2016-05-31] MEDS: MONTELUKAST SOD 10 MG TAB PO SCH (09:25)
--- NOTE | 2016-05-31 09:44 | Progress Note ---
Internal Med Progress Note Date of Service: May 31, 2016. Provider Documentation: SUBJECTIVE: Patient is feeling much better today. Rash has resolved. Burning mictuirition has resolved, urinary frequency is much better today. Cough + but improving, denies any SOB, sputum production, chest pain, fever, chills, leg swelling Ambulating to and from bathroom. Tolerating PO well No abdominal pain, nausea, vomiting, diarrhea. OBJECTIVE: Vital Signs-as noted below Exam: General-AAOX3, no distress Eyes-No icterus Neck-Supple, No JVD Lungs-AE decreased Rt side, rhonchi +, no wheezing, rhonchi, rales Heart-S1, S2 normal, no murmurs Abdomen-Soft, non tender, non distended, BS present Extremities-No edema Skin- Erythematous rash on trunk, extremities has resolved Lab data as noted below. Diagnostic Radiology CXR IMPRESSION: 1. Patchy density at the right lung base which may represent a developing pneumonitis. 2. Mild cardiomegaly, unchanged. ASSESSMENT & PLAN: Assessment and Plan : MEDICATION INDUCED ALLERGIC REACTION : - Patient received IV Rocephin in the ED on 05/29/16 and took dose of PO Bactrim on day of presentation and broke out in a rash within minutes . Noted patient has received two other courses of Bactrim in 11/2015 and 04/2016 without problems - No airway compromise, rash improved after dose of IV solumedrol/ Diphenhydramine in ED and now resolved - Continue with short taper of prednisone; Benadryl scheduled for one more day UTI / PNEUMONIA (RLL) - patient reports recurrent UTIs due to urethral stricture - last two urine cultures grew group B strep - Afebrile, normal WBC - blood cultures drawn, urine culture obtained from 05/29 ER visit - s/p Vanco and Zosyn in ED; will continue with Levaquin - IVF- okay to discontinue after this bag, follow up lactic acid - normal - nebs CARROLL- Resolved Likely pre renal secondary to nausea/acute illness -IV fluids - okay to discontinue after this bag -Encourage PO fluids DM - hgb a1c 6.1 02/2016 ; 8.1 now - hold metformin and utilize SSI / Lantus while hospitalized - insulin needs may be higher due to steroids - Lifestyle modification, diet control advised COPD - no wheezing on exam - continue home inhalers HTN - BP controlled, continue Lisinopril DVT PROPHYLAXIS - SCDs DISPO - Observation status - Awaiting urine, blood c/s results Vital Signs: Date Time Temp Pulse Resp B/P Pulse Ox O2 Delivery O2 Flow Rate FiO2 05/31/16 07:21 74 16 97 Room Air 05/31/16 04:30 148/88 05/31/16 00:34 36.8 75 18 107/50 92 Room Air 05/30/16 20:00 Room Air 05/30/16 19:24 36.8 95 18 150/76 95 05/30/16 19:11 91 16 95 Room Air 05/30/16 17:00 36.8 84 18 124/74 92 Room Air 05/30/16 16:54 87 18 139/68 94 05/30/16 16:30 111 18 157/70 96 Room Air 05/30/16 14:31 106 127/58 93 05/30/16 13:30 97 Room Air 05/30/16 12:28 109 18 123/59 98 Nebulizer 7.0 05/30/16 11:35 104 14 97 Room Air 05/30/16 11:30 103 155/74 95 05/30/16 10:56 96 Room Air 05/30/16 10:28 103 05/30/16 10:18 93 Room Air 05/30/16 09:48 36.8 90 20 115/78 93 Room Air Lab Results: Results Past 24 Hours Test 05/30/16 10:00 05/30/16 11:37 05/30/16 12:25 05/30/16 13:23 Range/Units White Blood Count 9.76 4.8-10.8 K/uL Red Blood Count 5.20 4.7-6.1 M/uL Hemoglobin 15.8 14.0-18.0 g/dL Hematocrit 44.9 42-52 % Mean Corpuscular Volume 86.3 80-100 fL Mean Corpuscular Hemoglobin 30.4 25-34 pg Mean Corpuscular Hemoglobin Concent 35.2 32-36 g/dl Platelet Count 163 130-400 K/uL Mean Platelet Volume 11.0 7.4-10.4 fL Neutrophils (%) (Auto) 83.9 % Lymphocytes (%) (Auto) 12.7 % Monocytes (%) (Auto) 2.7 % Eosinophils (%) (Auto) 0.3 % Basophils (%) (Auto) 0.0 % Neutrophils # (Auto) 8.19 1.4-6.5 K/uL Lymphocytes # (Auto) 1.24 1.2-3.4 K/uL Monocytes # (Auto) 0.26 0.11-0.59 K/uL Eosinophils # (Auto) 0.03 0-0.5 K/uL Basophils # (Auto) 0.00 0-0.2 K/uL RDW Standard Deviation 45.2 36.4-46.3 fL RDW Coefficient of Variation 14.4 11.5-14.5 % Immature Granulocyte % (Auto) 0.4 % Immature Granulocyte # (Auto) 0.04 0.00-0.02 K/uL Prothrombin Time 11.1 9.0-12.0 SECONDS Prothromb Time International Ratio 1.0 0.9-1.1 Activated Partial Thromboplast Time 23.4 21.0-31.0 SECONDS Partial Thromboplastin Ratio 0.9 Sodium Level 137 136-145 mmol/L Potassium Level 3.7 3.5-5.1 mmol/L Chloride Level 101 98-107 mmol/L Carbon Dioxide Level 26 21-32 mmol/L Anion Gap 10.0 3-11 mmol/L Blood Urea Nitrogen 18 7-18 mg/dl Creatinine 1.40 0.60-1.40 mg/dl Est Creatinine Clear Calc Drug Dose 70.0 ml/min Estimated GFR () 64.2 Estimated GFR (Non- 55.4 BUN/Creatinine Ratio 12.7 10-20 Random Glucose 227 70-99 mg/dl Calcium Level 8.8 8.5-10.1 mg/dl Total Bilirubin 1.0 0.2-1 mg/dl Aspartate Amino Transf (AST/SGOT) 42 15-37 U/L Alanine Aminotransferase (ALT/SGPT) 59 12-78 U/L Alkaline Phosphatase 70 45-117 U/L Total Protein 7.8 6.4-8.2 gm/dl Albumin 3.5 3.4-5.0 gm/dl Globulin 4.3 2.5-4.0 gm/dl Albumin/Globulin Ratio 0.8 0.9-2 Bedside Lactic Acid Venous 2.45 0.90-1.70 mmol/L Urine Color DK YELLOW Urine Appearance CLOUDY CLEAR Urine pH 5.0 4.5-7.5 Urine Specific [place] 1.045 1.000-1.030 Urine Protein NEG NEG Urine Glucose (UA) NEG NEG Urine Ketones TRACE NEG Urine Occult Blood NEG NEG Urine Nitrite POS NEG Urine Bilirubin NEG NEG Urine Urobilinogen NEG NEG Urine Leukocyte Esterase MODERATE NEG Urine WBC (Auto) 10-30 0-5 /hpf Urine RBC (Auto) 0-4 0-4 /hpf Urine Hyaline Casts (Auto) 5-10 0-5 /lpf Urine Epithelial Cells (Auto) 10-20 0-5 /lpf Urine Bacteria (Auto) 1+ NEG Urine Renal Epithelial Cells 0-5 /lpf Urine Crystals CALCIUM OXALATE NONE PRSENT Urine Pathogenic Casts 0 /lpf Influenza Type A (RT-PCR) Uninterpretable NEG Influenza Type A Antigen Uninterpretable NEG Influenza Type B Antigen Uninterpretable NEG Influenza Type B (RT-PCR) Uninterpretable NEG Test 05/30/16 16:55 05/30/16 17:12 05/30/16 20:03 05/30/16 20:40 Range/Units Lactic Acid Level 4.4 4.0 0.4-2.0 mmol/L Bedside Glucose 388 383 70-99 mg/dl Sodium Level 132 136-145 mmol/L Potassium Level 4.3 3.5-5.1 mmol/L Chloride Level 98 98-107 mmol/L Carbon Dioxide Level 24 21-32 mmol/L Anion Gap 10.0 3-11 mmol/L Blood Urea Nitrogen 24 7-18 mg/dl Creatinine 1.70 0.60-1.40 mg/dl Est Creatinine Clear Calc Drug Dose 57.7 ml/min Estimated GFR () 50.8 Estimated GFR (Non- 43.8 BUN/Creatinine Ratio 14.4 10-20 Random Glucose 404 70-99 mg/dl Calcium Level 8.4 8.5-10.1 mg/dl Beta-Hydroxybutyric Acid 1.17 0.2-2.81 mg/dL Test 05/30/16 21:06 05/30/16 21:59 05/30/16 23:03 05/31/16 00:03 Range/Units Bedside Glucose 372 335 279 229 70-99 mg/dl Test 05/31/16 01:12 05/31/16 02:00 05/31/16 03:01 05/31/16 04:00 Range/Units Bedside Glucose 182 161 144 162 70-99 mg/dl Test 05/31/16 06:01 05/31/16 06:15 05/31/16 07:07 05/31/16 08:19 Range/Units Bedside Glucose 128 128 137 70-99 mg/dl White Blood Count 7.19 4.8-10.8 K/uL Red Blood Count 4.27 4.7-6.1 M/uL Hemoglobin 12.8 14.0-18.0 g/dL Hematocrit 36.8 42-52 % Mean Corpuscular Volume 86.2 80-100 fL Mean Corpuscular Hemoglobin 30.0 25-34 pg Mean Corpuscular Hemoglobin Concent 34.8 32-36 g/dl RDW Standard Deviation 44.6 36.4-46.3 fL RDW Coefficient of Variation 14.4 11.5-14.5 % Platelet Count 80 130-400 K/uL Mean Platelet Volume 10.0 7.4-10.4 fL Platelet Estimate DECREASED Sodium Level 138 136-145 mmol/L Potassium Level 3.8 3.5-5.1 mmol/L Chloride Level 103 98-107 mmol/L Carbon Dioxide Level 25 21-32 mmol/L Anion Gap 10.0 3-11 mmol/L Blood Urea Nitrogen 19 7-18 mg/dl Creatinine 0.90 0.60-1.40 mg/dl Est Creatinine Clear Calc Drug Dose 109.0 ml/min Estimated GFR () 109.5 Estimated GFR (Non- 94.5 BUN/Creatinine Ratio 20.8 10-20 Random Glucose 132 70-99 mg/dl Estimated Average Glucose 186 mg/dl Hemoglobin A1c 8.1 4.5-5.6 % Lactic Acid Level 1.4 0.4-2.0 mmol/L Calcium Level 8.4 8.5-10.1 mg/dl Test 05/31/16 09:23 Range/Units Bedside Glucose 211 70-99 mg/dl Microbiology Results 05/30/16 Blood Culture, Received Pending 05/30/16 Blood Culture, Received Pending
[2016-05-31] MEDS: HYDROCODONE/ACETAMOPHEN 5/325MG TAB PO SCH ×2 (10:31→20:48)
[2016-05-31] MEDS ORDERED: INSULIN GLARGINE SOLOSTAR 100 UNITS/ML 3 ML PEN SC ONE ×2 (11:30→21:00)
--- NOTE | 2016-05-31 11:36 | Pharmacy Progress Note ---
Glycemic Control: Progress Nt Date of Service May 31, 2016. Scope Glycemic Pharmacist consulted by Dr Elizabeth on 05/31/16 for glycemic control and to write orders per [facility] inpatient glycemic control protocol. Objective Accuchecks BSG (last 24hrs): Test 05/30/16 17:12 05/30/16 20:03 05/30/16 20:40 05/30/16 21:06 Bedside Glucose 388 mg/dl (70-99) 383 mg/dl (70-99) 372 mg/dl (70-99) Random Glucose 404 mg/dl (70-99) Test 05/30/16 21:59 05/30/16 23:03 05/31/16 00:03 05/31/16 01:12 Bedside Glucose 335 mg/dl (70-99) 279 mg/dl (70-99) 229 mg/dl (70-99) 182 mg/dl (70-99) Test 05/31/16 02:00 05/31/16 03:01 05/31/16 04:00 05/31/16 06:01 Bedside Glucose 161 mg/dl (70-99) 144 mg/dl (70-99) 162 mg/dl (70-99) 128 mg/dl (70-99) Test 05/31/16 06:15 05/31/16 07:07 05/31/16 08:19 05/31/16 09:23 Random Glucose 132 mg/dl (70-99) Bedside Glucose 128 mg/dl (70-99) 137 mg/dl (70-99) 211 mg/dl (70-99) Test 05/31/16 10:21 Bedside Glucose 152 mg/dl (70-99) Laboratory Data (last 24hrs) Test 05/30/16 20:40 05/31/16 06:15 Anion Gap 10.0 mmol/L 10.0 mmol/L BUN/Creatinine Ratio 14.4 20.8 Blood Urea Nitrogen 24 mg/dl 19 mg/dl Creatinine 1.70 mg/dl 0.90 mg/dl Potassium Level 4.3 mmol/L 3.8 mmol/L Sodium Level 132 mmol/L 138 mmol/L Hemoglobin A1c 8.1 % White Blood Count 7.19 K/uL HbA1c: Test 05/31/16 06:15 Hemoglobin A1c 8.1 % (4.5-5.6) H Recent Pertinent Medications Outpatient Anti-diabetic Regimen: * Metformin 1gm BIDM The patient is currently receiving: * Insulin drip per moderate stress protocol * Goal range 140-180 mg/dL Risk Factors for Insulin Resistance: * Steroids: Solu-medrol 125mg IV x 1 then prednisone taper. * Diet: DM2/AHA Assessment & Plan ASSESSMENT: 05/31/16 * 56 yo male admitted s/p allergic rxn to Bactrim possibly * Most recent A1c 8.1% from today's labs indicates a decline in outpatient control since 2015 * Pt only takes Metformin at home. May need to evaluate outpatient BSG control at discharge * D/t allergic rxn the pt is ordered a steroid taper. He received a dose of solu-medrol 125mg IV x 1 in the ED 05/30/16. Prednisone 40 mg PO given today which will be tapered over the next several days. * Plan was to go with a basal/bolus approach initially, but BSGs climbed to near 400 mg/dL and provider decided to start insulin drip instead * Insulin drip as high as 3.9 units/hr overnight, but down to 2.1 units/hr this afternoon * My plan today is to transition him to basal/bolus regimen using the same plan we had constructed from him yesterday * Add an overnight Novolog check in case insulin needs are underestimated PLAN FOR INPATIENT GLYCEMIC CONTROL: * Start Lantus 15 units X 1 this afternoon * Turn insulin drip off when held, or 6 hours after Lantus dose given, whichever happens first * Lantus qHS based upon BSG scale: * BSG 120 mg/dl and below: 0 units * BSG 121 mg/dl to 180 mg/dl: 10 units * BSG 181 mg/dl and above: 20 units * Novolog ACHS + 00,04 * Set correction factor to 25 mg/dl/unit * Set carb ratio to 1 unit per 9 grams CHO consumed * Set goal range to Low 110 mg/dL - High 150 mg/dL * Please note that the plan above was derived based on current level of insulin resistance and hospital stress. These recommendations are appropriate for inpatient admission only. Plan of care upon discharge will need to be reassessed to avoid potential outpatient hypo/hyperglycemia. Thank you.
[2016-05-31] MEDS: LISINOPRIL 20 MG TAB PO SCH ×2 (16:41→20:47)
[2016-05-31] MEDS: LEVOFLOXACIN / D5W 500 MG in PREMIXED IN D5W 100 ML IV SCH (19:20)
[2016-06-01] VITALS (8 sets, daily range): BP systolic 155–184; BP diastolic 78–93; PULSE 72–87; TEMP 36.8; O2SAT 91–96
[2016-06-01] MEDS: INSULIN ASPART 100 UNITS/ML 3 ML PEN SC SCH ×4 (00:34→12:42)
[2016-06-01] MEDS: ALBUT/IPRATROP 3MG/0.5MG NEB 3 ML VIAL INH SCH (08:00)
[2016-06-01] MEDS: MONTELUKAST SOD 10 MG TAB PO SCH (08:16)
[2016-06-01] MEDS: LISINOPRIL 20 MG TAB PO SCH (08:18)
--- NOTE | 2016-06-01 08:52 | Progress Note ---
Internal Med Progress Note Date of Service: Jun 01, 2016. Provider Documentation: SUBJECTIVE: Patient is feeling much better today and eager to be discharged. Rash resolved within 24 hours of admission. Burning mictuirition, urinary frequency resolved. Cough without sputum- improved, denies any SOB, chest pain, fever, chills, leg swelling Tolerating ambulation well No abdominal pain, nausea, vomiting, diarrhea. Not on oxygen OBJECTIVE: Vital Signs-as noted below Exam: General-AAOX3, no distress Eyes-No icterus Neck-Supple, No JVD Lungs-AE decreased Rt side, , no wheezing, rhonchi, rales Heart-S1, S2 normal, no murmurs Abdomen-Soft, non tender, non distended, BS present Extremities-No edema Skin- Erythematous rash on trunk, extremities has resolved Lab data as noted below. Diagnostic Radiology CXR IMPRESSION: 1. Patchy density at the right lung base which may represent a developing pneumonitis. 2. Mild cardiomegaly, unchanged. ASSESSMENT & PLAN: Assessment and Plan : MEDICATION INDUCED ALLERGIC REACTION : Resolved within 24 hours - Patient received IV Rocephin in the ED on 05/29/16 and took dose of PO Bactrim on day of presentation and broke out in a rash within minutes . Noted patient has received two other courses of Bactrim in 11/2015 and 04/2016 without problems - No airway compromise, rash improved after dose of IV solumedrol/ Diphenhydramine in ED and resolved completely within 24 hours - On prednisone; Benadryl x 2 days- No indication for steroids or benadryl on discharge. UTI / PNEUMONIA (RLL) - Clinically improved - Patient reports recurrent UTIs due to urethral stricture - last two urine cultures grew group B strep - Afebrile, normal WBC - blood cultures drawn, urine culture obtained from 05/29 ER visit - S/P Vanco and Zosyn in ED; will continue with Levaquin (Day 3) - S/P IVF CARROLL- Resolved Likely pre renal secondary to nausea/acute illness -S/P IVF -Restarted Lisinopril yesterday evening -Encourage PO fluids HTN- Uncontrolled Likely secondary to not getting his lisinopril due to CARROLL -Restarted Lisinopril yesterday evening -BP still high as did not get Lisinopril per schedule -Repeat BP after administration of morning pill DM -Uncontrolled per HBA1C - hgb a1c 6.1 02/2016 ; 8.1 now - hold metformin and utilize SSI / Lantus while hospitalized - insulin needs may be higher due to steroids - Lifestyle modification, diet control advised COPD - no wheezing on exam - continue home inhalers DVT PROPHYLAXIS - SCDs DISPO - Observation status - Okay to discharge home today after BP re check,. Vital Signs: Date Time Temp Pulse Resp B/P Pulse Ox O2 Delivery O2 Flow Rate FiO2 06/01/16 07:58 36.8 80 18 161/80 91 Room Air 06/01/16 07:30 72 16 96 Room Air 05/31/16 23:55 36.5 79 18 193/89 96 Room Air 05/31/16 20:45 93 166/78 05/31/16 20:07 89 16 98 Room Air 05/31/16 16:08 83 16 97 Room Air 05/31/16 16:00 Room Air 05/31/16 15:08 36.5 79 16 177/79 93 Lab Results: Results Past 24 Hours Test 05/31/16 09:23 05/31/16 10:21 05/31/16 11:21 05/31/16 13:22 Range/Units Bedside Glucose 211 152 138 302 70-99 mg/dl Test 05/31/16 14:19 05/31/16 15:35 05/31/16 16:31 05/31/16 17:39 Range/Units Bedside Glucose 244 233 220 247 70-99 mg/dl Test 05/31/16 18:26 05/31/16 20:28 05/31/16 23:41 06/01/16 04:28 Range/Units Bedside Glucose 328 250 179 152 70-99 mg/dl Test 06/01/16 07:54 Range/Units Bedside Glucose 111 70-99 mg/dl
[2016-06-01] MEDS ORDERED: INSULIN GLARGINE SOLOSTAR 100 UNITS/ML 3 ML PEN SC SCH ×2 (09:00→21:00)
[2016-06-01] MEDS: HYDROCODONE/ACETAMOPHEN 5/325MG TAB PO SCH (09:02)
[2016-06-01] MEDS ORDERED: AMLODIPINE BESYLATE 5 MG TAB PO ONE (10:15)
[2016-06-01] MEDS: IPRATROPIUM BROMIDE/ALBUTEROL respimat INH INH SCH ×2 (12:44→12:45)
[2016-06-01] MEDS ORDERED: AMLO-110 PO (14:51)
[2016-06-01] MEDS ORDERED: LEVO-459 PO (14:51)
--- NOTE | 2016-06-01 14:52 | Discharge Instructions ---
Discharge Instructions Admission Reason for Admission: Allergic Reaction Discharge Discharge Diagnosis / Problem: 1. UTI 2. Pneumonia Discharge Goals Goal(s): Diagnostic testing, Therapeutic intervention Activity Recommendations Activity Limitations: resume your previous activity . Instructions / Follow-Up Instructions / Follow-Up NEW MEDICATIONS: 1. Levofloxacin 500 mg PO daily x 5 more days to complete course of 7 days of antibiotics for UTI/Pneumonia 2. Amlodipine 5 mg daily for uncontrolled BP FOLLOW UP 1. Dr Vickers on 06/04/16 at 11:10 AM Current Hospital Diet Patient's current hospital diet: Diabetes Type 2 Diet, AHA Diet (Heart Healthy) Discharge Diet Recommended Diet: AHA Diet (Heart Healthy), Low Sodium Diet (2gm Na), Diabetes Type 2 Diet Pending Studies Studies pending at discharge: no Laboratory Results Hemoglobin A1c Test 05/31/16 06:15 Range/Units Estimated Average Glucose 186 mg/dl Hemoglobin A1c 8.1 H 4.5-5.6 % Medical Emergencies . Who to Call and When: Medical Emergencies: If at any time you feel your situation is an emergency, please call 911 immediately. . Non-Emergent Contact Non-Emergency issues call your: Primary Care Provider . . "Provider Documentation" section prepared by Audrey Puentes. VTE Core Measure Inpt VTE Proph given/why not?: Eduardo Vick, SCD's
--- NOTE | 2016-06-01 15:01 | Discharge Summary ---
Discharge Summary Date of Service Jun 01, 2016. Discharge Summary Admission Date: May 30, 2016 at 17:22 Discharge Date: Jun 01, 2016 Discharge Disposition: Home Principal Diagnosis: 1. UTI 2. Pneumonia (RLL) 3. Allergic reaction to Bactrim (Rash) 4. CARROLL 5. Hypertension, uncontrolled Secondary Diagnoses/Problems: 1. COPD 2. DM-2 3. Hx of Hepatitis C Procedures: CXR IV fluids IV antibiotics Consultations: None Pending Studies/Follow-Up: Instructions / Follow-Up NEW MEDICATIONS: 1. Levofloxacin 500 mg PO daily x 5 more days to complete course of 7 days of antibiotics for UTI/Pneumonia 2. Amlodipine 5 mg daily for uncontrolled BP FOLLOW UP 1. Dr Vickers on 06/04/16 at 11:10 AM Medication Reconciliation New Medications: Amlodipine (Norvasc) 5 Mg Tab 5 MG PO DAILY for 30 Days, #30 TAB 2 Refills Levofloxacin (Levaquin) 500 Mg Tab 500 MG PO DAILY for 5 Days, #5 TAB Continued Medications: Albuterol Hfa (Ventolin Hfa) 200 Puffs/86611 Mcg Aers 2 PUFFS INH Q4H PRN for Wheezing Fluticasone Furoate-Vilanterol (Breo Ellipta) 1 Inh Inh 1 PUFF INH DAILY Hydrocodone/Acetaminophen 5MG/325MG ([place] 5MG/325MG) Tab 1 TAB PO BID, TAB Lisinopril (Lisinopril) 20 Mg Tab 20 MG PO BID Metformin Hcl Er (Glucophage Er) 500 Mg Tab 1000 MG PO BID, TAB Montelukast Sod (Montelukast Sodium) 10 Mg Tab 10 MG PO HS Discontinued Medications: Sulfa/Trimethoprim (Bactrim Ds 800MG/160MG) Tab 1 TAB PO BID for 9 Days, #18 TAB Admission Information HPI (per Admitting provider): 56 year old male who presents to the ER with an allergic reaction. Patient was seen in the ER last evening for URI and UTI type symptoms. Patient was given a dose of IV Rocephin and discharged on Bactrim. Patient took his first home dose of Bactrim this AM and within a few minutes broke out in a diffuse, red, rash. He reports associated nausea and vomiting. No shortness of breath, stridor, mouth soreness, or throat closing. Patient took a Benadryl at home. Of note, patient received courses of Bactrim in 11/2015 and 05/2015 for UTIs. Both cultures grew group B beta strep. On 05/21, patient was seen by his PCP for UTI symptoms. He was suspected to have the flu and was given Tamiflu and prednisone taper for back pain. Patient reports minimal improvement in his symptoms after completing the Tamiflu. Patient reports cough productive for yellow/white/blood tinged mucous. He has chronic shortness of breath at baseline due to COPD and feels it is mildly worse. Patient reports gets UTIs usually at least once a year. He reports a history of ureteral stricture. He reports that over the past few months he has had dysuria and frequency. He notes no improvement since taking the prior courses of antibiotics. He denies hematuria. He has chronic neck and back pain which are unchanged. He reports some mid and left sided abdominal pain. No constipation or diarrhea. Feels his abdomen is more distended than normal. He has had chills at home but did not take his temperature. He denies lightheadedness, dizziness, diaphoresis, or syncopal events. In the ER, patient's vitals are stable. He was treated with IV Benadryl , Zantac, Solumedrol, Vanco, Zosyn, neb, and IVF. Rash is improving. Physical Exam (per Admitting): General Appearance: no apparent distress (ill appearing) Head: normocephalic Eyes: normal inspection ENT: normal ENT inspection, + pertinent finding (no mouth sores or pharyngeal edema/erythema) Respiratory/Chest: no respiratory distress, + pertinent finding (coarse breath sounds BL bases) Cardiovascular: no edema, + tachycardia (mild, HR 90s-low 100s, regular rhythm) Abdomen/GI: normal bowel sounds, soft, + tenderness (periumbilical, left abdomen ) Extremities/Musculoskelatal: normal inspection, no calf tenderness Neurologic/Psych: no motor/sensory deficits, alert, normal mood/affect, oriented x 3 Skin: + pertinent finding (diffuse, flat, blanching red rash noted over trunk and BLUE) Hospital Course Assessment and Plan : MEDICATION INDUCED ALLERGIC REACTION : Resolved within 24 hours - Patient received IV Rocephin in the ED on 05/29/16 and took dose of PO Bactrim on day of presentation and broke out in a rash within minutes . Noted patient has received two other courses of Bactrim in 11/2015 and 04/2016 without problems - No airway compromise, rash improved after dose of IV solumedrol/ Diphenhydramine in ED and resolved completely within 24 hours - On prednisone; Benadryl x 2 days- No indication for steroids or benadryl on discharge. UTI / PNEUMONIA (RLL) - Clinically improved - Patient reports recurrent UTIs due to urethral stricture - last two urine cultures grew group B strep - Afebrile, normal WBC - blood cultures drawn, urine culture obtained from 05/29 ER visit - S/P Vanco and Zosyn in ED; will continue with Levaquin (Day 3) - S/P IVF CARROLL- Resolved Likely pre renal secondary to nausea/acute illness -S/P IVF -Restarted Lisinopril yesterday evening -Encourage PO fluids HTN- Uncontrolled Likely secondary to not getting his lisinopril due to CARROLL -Restarted Lisinopril yesterday evening -BP still high as did not get Lisinopril per schedule -Repeat BP after administration of morning pill DM -Uncontrolled per HBA1C - hgb a1c 6.1 02/2016 ; 8.1 now - hold metformin and utilize SSI / Lantus while hospitalized - insulin needs may be higher due to steroids - Lifestyle modification, diet control advised COPD - no wheezing on exam - continue home inhalers DVT PROPHYLAXIS - SCDs DISPO - Observation status - Okay to discharge home today. - Eager to be discharged Total time spent on discharge = 32 MINUTES This includes examination of the patient, discharge planning, medication reconciliation, and communication with other providers. Discharge Instructions Activity Limitations: resume your previous activity . Instructions / Follow-Up Instructions / Follow-Up NEW MEDICATIONS: 1. Levofloxacin 500 mg PO daily x 5 more days to complete course of 7 days of antibiotics for UTI/Pneumonia 2. Amlodipine 5 mg daily for uncontrolled BP FOLLOW UP 1. Dr Vickers on 06/04/16 at 11:10 AM Current Hospital Diet Patient's current hospital diet: Diabetes Type 2 Diet, AHA Diet (Heart Healthy) Discharge Diet Recommended Diet: AHA Diet (Heart Healthy), Low Sodium Diet (2gm Na), Diabetes Type 2 Diet Pending Studies Studies pending at discharge: no Laboratory Results Hemoglobin A1c Test 05/31/16 06:15 Range/Units Estimated Average Glucose 186 mg/dl Hemoglobin A1c 8.1 H 4.5-5.6 % Medical Emergencies . Who to Call and When: Medical Emergencies: If at any time you feel your situation is an emergency, please call 911 immediately. . Non-Emergent Contact Non-Emergency issues call your: Primary Care Provider . . "Provider Documentation" section prepared by Audrey Puentes. VTE Core Measure Inpt VTE Proph given/why not?: Eduardo Vick, SCD's
== END 2016-06-01 17:00 | disposition home or self-care (01) ==
LOC: ENRESERVDT → ENRESERVTM → CANRESERV → C.EDB 09:39 → CANBEDREQ 14:28 → UNDOADMOB 17:22 → C.MED 17:22
PROVIDERS: ADMIT Hospitalist; ATTEND Internal Medicine
DX: N30.00 Acute cystitis without hematuria (principal); J18.9 Pneumonia, unspecified organism; L27.0 Generalized skin eruption due to drugs and medicaments taken internally; N17.9 Acute kidney failure, unspecified; T37.0X5A Adverse effect of sulfonamides, initial encounter; I10 Essential (primary) hypertension; E11.9 Type 2 diabetes mellitus without complications; B18.2 Chronic viral hepatitis C; J44.9 Chronic obstructive pulmonary disease, unspecified; J06.9 Acute upper respiratory infection, unspecified; Z87.891 Personal history of nicotine dependence; Z79.899 Other long term (current) drug therapy

== ENCOUNTER 2021-06-21 18:10 | Observation (INO) ==
[2021-06-21] MEDS ORDERED: ASPIRIN CHEW 324 MG ONE (18:26)
[2021-06-21] MEDS ORDERED: NITROGLYCERIN SL 0.4 MG/TAB TAB ONE (18:26)
[2021-06-21] MEDS ORDERED: ONDANSETRON INJ 2 MG/ML 2 ML VIAL ONE (18:28)
[2021-06-21] MEDS ORDERED: SODIUM CHLORIDE 0.9% 1000ML 1,000 ML IV STA (18:28)
--- NOTE | 2021-06-21 18:34 | Emergency Department Note ---
History of Present Illness General Chief Complaint: Chest Pain Stated Complaint: CHEST PAIN GOES INTO L ARM Time Seen by Provider: 06/21/21 18:16 History of Present Illness Provider Complaint: chest pain Onset (ago): day(s) 1 Duration: constant Onset: during rest Pain Location: left chest Pain Radiation: LUE Severity: moderate Maximum Pain Intensity: 6 Current Pain Intensity: 6 Quality: + heaviness Relieved By: + nothing Exacerbated By: + nothing Context: no recent illness, no recent surgery, no recent immobilization, no recent travel, no trauma/injury or no new medications Associated symptoms: + dyspnea and + palpitations; no vomiting, no diaphoresis, no syncope, no fever or no cough Dizziness near syncope Home Medications Medication Instructions Recorded Confirmed Type albuterol sulfate 90 mcg/actuation 2 puff INHALATION Q4H PRN 01/24/20 06/21/21 History aerosol inhaler (Ventolin HFA) amlodipine 5 mg tablet 5 mg PO QAM 01/24/20 06/21/21 History empagliflozin 25 mg tablet 25 mg PO QAM 01/24/20 06/21/21 History (Jardiance) hydrocodone 5 mg-acetaminophen 325 1 - 2 tab PO BID 01/24/20 06/21/21 History mg tablet lisinopril 20 mg tablet 20 mg PO BID 01/24/20 06/21/21 History metformin 500 mg tablet,extended 1,000 mg PO BID 01/24/20 06/21/21 History release 24 hr montelukast 10 mg tablet 10 mg PO HS 01/24/20 06/21/21 History aspirin 81 mg chewable tablet 81 mg PO 2XWK 01/26/20 06/21/21 History fluticasone 250 mcg-salmeterol 50 1 ea INHALATION BID 06/21/21 06/21/21 History mcg/dose blistr powdr for inhalation Allergies Allergy/AdvReac Type Severity Reaction Status Date / Time sulfamethoxazole Allergy Intermediate RASH, Verified 06/21/21 19:23 UPSET STOMACH trimethoprim Allergy Intermediate RASH, Verified 06/21/21 19:23 UPSET STOMACH tramadol AdvReac Intermediate SHAKEY, Verified 06/21/21 19:23 NERVOUS Past Med/Surg History Medical History Chronic pain COPD (chronic obstructive pulmonary disease) DM type 2 (diabetes mellitus, type 2) Hepatitis C "completed Harvoni treatment" HTN (hypertension) No pertinent family history Urethral stricture "s/p surgery" Surgical History No pertinent past surgical history Social History Smoking Status: Current some day smoker Tobacco Type: Cigarettes Preferred Language: Frisian Feels Safe at Home: Yes Review of Systems A total of 10 systems reviewed and were otherwise negative Physical Exam Vital Signs Vital Signs - 24 hr 06/21/21 18:12 06/21/21 18:50 06/21/21 19:08 Temperature 36.6 C Temperature Source Oral Pulse Rate 80 73 Pulse Rate [Right Finger] 86 Pulse Rhythm Regular Pulse Rhythm [Right Finger] Regular Pulse Strength [Right Finger] Normal Respiratory Rate 18 17 17 Respiratory Effort / Characteristics Non-Labored Spontaneous Respiratory Depth Normal Respiratory Pattern Blood Pressure 175/105 H Blood Pressure [Right Arm] 138/73 Blood Pressure Mean 128 Blood Pressure Mean [Right Arm] 94 Blood Pressure Position Sitting Blood Pressure Position [Right Arm] Lying Pulse Oximetry 96 97 97 Oxygen Delivery Method Room Air Room Air Room Air Sepsis Recent Fever Within 48 Hours No Sepsis New/Unexplained Change in Mental Status No Sepsis Action Taken by Nursing No Action Required 06/21/21 20:11 06/21/21 22:00 06/21/21 23:00 Temperature Temperature Source Pulse Rate Pulse Rate [Right Finger] 79 87 82 Pulse Rhythm Pulse Rhythm [Right Finger] Regular Regular Regular Pulse Strength [Right Finger] Normal Normal Normal Respiratory Rate 17 18 18 Respiratory Effort / Characteristics Non-Labored Spontaneous Non-Labored Spontaneous Non-Labored Spontaneous Respiratory Depth Normal Normal Normal Respiratory Pattern Regular Blood Pressure Blood Pressure [Right Arm] 123/100 Blood Pressure Mean Blood Pressure Mean [Right Arm] 107 Blood Pressure Position Blood Pressure Position [Right Arm] Sitting Pulse Oximetry 97 97 95 Oxygen Delivery Method Room Air Room Air Room Air Sepsis Recent Fever Within 48 Hours Sepsis New/Unexplained Change in Mental Status Sepsis Action Taken by Nursing Physical Exam GENERAL: He is oriented to person, place, and time. He appears well-developed and well-nourished. He does not appear distressed. HENT: Exam performed. - Head: Normocephalic and atraumatic. - Right Ear: External ear normal. No mastoid tenderness. - Left Ear: External ear normal. No mastoid tenderness. - Mouth/Throat: The oropharynx is clear and moist. No trismus in the jaw. No dental abscesses or uvula swelling. No oropharyngeal exudate or tonsillar abscesses. EYES: Conjunctivae and EOM are normal. Pupils are equal, round, and reactive to light. Right eye exhibits no discharge. Left eye exhibits no discharge. No scleral icterus. NECK: Normal range of motion. Neck supple. No JVD present. No spinous process tenderness present. No carotid bruit present. No rigidity. No tracheal deviation and normal range of motion present. No Brudzinski's sign and no Kernig's sign noted. CV: Normal rate, regular rhythm, normal heart sounds and intact distal pulses. There is no peripheral edema. Palpable radial pulses bue. PULM/CHEST: Effort normal and breath sounds normal. No respiratory distress. No stridor. He has no wheezes. He has no rales. - Chest Wall: He exhibits no tenderness. ABD: The abdomen is soft. Bowel sounds are normal. He has no distension. No mass is present. There is no tenderness. There is no rebound, no guarding, no Epperson's sign and no tenderness at McBurney's point. Rovsig negative. MUSC/SKEL: Normal range of motion. There is no peripheral edema, tenderness or deformity. LYMPH: No cervical adenopathy. NEURO: He is alert and oriented to person, place, and time. He has normal strength. No cranial nerve deficit or sensory deficit. Coordination and gait normal. GCS eye subscore is 4. GCS verbal subscore is 5. GCS motor subscore is 6. Cerebellar tests wnl. SKIN: Skin is warm and dry. He is not diaphoretic. PSYCH: He has a normal mood and affect. Behavior is normal. Judgment and thought content normal. Course Course 1815: The patient was evaluated in room B8. A complete history and physical exam was performed Cardiac monitoring: An order was placed for continuous cardiac monitoring. The monitor shows a rate of 80 with sinus rhythm 1914: Vital signs stable. Status post 1 sublingual nitroglycerin the patient states his chest pain is completely resolved. 2239: Vital signs stable. Patient continues to be chest pain-free. Labs within normal limits with exception of an elevated D-dimer. CT of the chest negative for PE. Patient will be admitted to the [facility] team for chest pain rule out ACS Dr. Olson notified Administered Medications Discontinued Medications Aspirin (Aspirin Chew 324 Mg) Confirm Administered Dose 324 mg .ROUTE .STK-MED ONE Stop: 06/21/21 18:27 Last Admin: 06/21/21 18:30 Dose: 324 mg Documented by: [id number] Sodium Chloride (Nss 1000ml) 1,000 mls @ 999 mls/hr IV .Q1H1M STA Stop: 06/21/21 19:28 Last Infusion: 06/21/21 19:30 Dose: 0 mls/hr Documented by: [id number] Admin: 06/21/21 18:31 Dose: 999 mls/hr Documented by: [id number] Ioversol (Optiray 320 125ml) 120 ml IV ONCE ONE Stop: 06/21/21 20:18 Last Admin: 06/21/21 20:19 Dose: 120 ml Documented by: [id number] Nitroglycerin (Nitroglycerin Sl 0.4 Mg/Tab Tab) Confirm Administered Dose 0.4 mg .ROUTE .STK-MED ONE Stop: 06/21/21 18:27 Last Admin: 06/21/21 18:30 Dose: 0.4 mg Documented by: [id number] Ondansetron HCl (Ondansetron Inj 2 Mg/Ml 2 Ml Vial) Confirm Administered Dose 4 mg .ROUTE .STK-MED ONE Stop: 06/21/21 18:29 Last Admin: 06/21/21 18:31 Dose: 4 mg Documented by: [id number] Medical Decision Making Laboratory Data Result diagrams: 06/21/21 18:19 06/21/21 18:19 Labs: Lab Results 06/21/21 06/21/21 06/21/21 Range/Units 18:19 18:19 18:19 WBC 7.20 (4.8-10.8) K/uL RBC 5.19 (4.7-6.1) M/uL Hgb 15.8 (14.0-18.0) g/dL Hct 46.3 (42-52) % MCV 89.2 (80-100) fL MCH 30.4 (25-34) pg MCHC 34.1 (32-36) g/dL RDW Std Deviation 45.1 (36.4-46.3) fL RDW Coeff of Mirtha 13.8 (11.5-14.5) % Plt Count 146 (130-400) K/uL MPV 10.4 (7.4-10.4) fL Immature Gran % (Auto) 0.3 % Neut % (Auto) 59.6 % Lymph % (Auto) 31.8 % [place] % (Auto) 6.1 % Eos % (Auto) 1.9 % Baso % (Auto) 0.3 % Neut # (Auto) 4.29 (1.4-6.5) K/uL Lymph # (Auto) 2.29 (1.2-3.4) K/uL [place] # (Auto) 0.44 (0.11-0.59) K/uL Eos # (Auto) 0.14 (0-0.5) K/uL Baso # (Auto) 0.02 (0-0.2) K/uL Immature Gran # (Auto) 0.02 (0.00-0.02) K/uL PT 10.6 (9.0-12.0) Seconds INR 1.0 (0.9-1.1) APTT 23.8 (21.0-31.0) Seconds PTT Ratio 0.9 D-Dimer 530 H* (0-500) ug/L FEU Sodium 137 (136-145) mmol/L Potassium 3.9 (3.5-5.1) mmol/L Chloride 103 (98-107) mmol/L Carbon Dioxide 26 (21-32) mmol/L Anion Gap 8 (3-11) BUN 13 (6-23) mg/dl Creatinine 0.99 (0.6-1.4) mg/dl Est Cr Clr Drug Dosing Not Reportable Est GFR ( Amer) 94.2 ml/min Est GFR (Non-Af Amer) 81.3 ml/min BUN/Creatinine Ratio 13.1 (10-20) Glucose 134 H (70-99(Fasting)) mg/dl POC Glucose (70-99) mg/dl Calcium 9.9 (8.5-10.1) mg/dl Magnesium (1.7-2.4) mg/dl Troponin I < 0.03 (0-0.04) ng/ml Lipase 45 (11-82) U/L SARS-CoV-2, RNA, NAAT (NEGATIVE) 06/21/21 06/21/21 06/21/21 Range/Units 18:23 18:32 21:36 WBC (4.8-10.8) K/uL RBC (4.7-6.1) M/uL Hgb (14.0-18.0) g/dL Hct (42-52) % MCV (80-100) fL MCH (25-34) pg MCHC (32-36) g/dL RDW Std Deviation (36.4-46.3) fL RDW Coeff of Mirtha (11.5-14.5) % Plt Count (130-400) K/uL MPV (7.4-10.4) fL Immature Gran % (Auto) % Neut % (Auto) % Lymph % (Auto) % [place] % (Auto) % Eos % (Auto) % Baso % (Auto) % Neut # (Auto) (1.4-6.5) K/uL Lymph # (Auto) (1.2-3.4) K/uL [place] # (Auto) (0.11-0.59) K/uL Eos # (Auto) (0-0.5) K/uL Baso # (Auto) (0-0.2) K/uL Immature Gran # (Auto) (0.00-0.02) K/uL PT (9.0-12.0) Seconds INR (0.9-1.1) APTT (21.0-31.0) Seconds PTT Ratio D-Dimer (0-500) ug/L FEU Sodium (136-145) mmol/L Potassium (3.5-5.1) mmol/L Chloride (98-107) mmol/L Carbon Dioxide (21-32) mmol/L Anion Gap (3-11) BUN (6-23) mg/dl Creatinine (0.6-1.4) mg/dl Est Cr Clr Drug Dosing Est GFR ( Amer) ml/min Est GFR (Non-Af Amer) ml/min BUN/Creatinine Ratio (10-20) Glucose (70-99(Fasting)) mg/dl POC Glucose 133 H (70-99) mg/dl Calcium (8.5-10.1) mg/dl Magnesium 2.0 (1.7-2.4) mg/dl Troponin I (0-0.04) ng/ml Lipase (11-82) U/L SARS-CoV-2, RNA, NAAT NEGATIVE (NEGATIVE) Imaging Data Chest x-ray: Radiologist's impression: XR chest 1V portable CLINICAL HISTORY: Atypical chest pain. COMPARISON STUDY: Chest radiograph January 24, 2020. FINDINGS: No pneumothorax or pleural effusion is present. Mild cardiomegaly is unchanged. There is no evidence for pulmonary edema. No consolidation is identified to suggest pneumonia. Appearance of the chest is similar to prior exam. IMPRESSION: No acute cardiopulmonary findings. ACT 112: Negative or not required by law. Electronically signed by: Dusty George M.D. 06/21/2021 6:57 PM Dictated:06/21/211855 Transcribed: 06/21/211855 CT scan - head: Radiologist's impression: CT OF THE HEAD WITHOUT CONTRAST CLINICAL HISTORY: dizziness COMPARISON STUDY: Head CT and CTA of the head January 24, 2020. CT DOSE: 537.48 mGy.cm TECHNIQUE: Helical axial images of the head were obtained without IV contrast. Automated exposure control was utilized for the study. A dose lowering technique was utilized adhering to the principles of ALARA. FINDINGS: No acute intracranial hemorrhage, midline shift or mass effect is present. The ventricular system is unremarkable. The basal cisterns are patent. No extra-axial collections are present. There are no findings to suggest acute dural sinus thrombosis or acute territorial infarct. No significant calvarial abnormalities are present. Extensive ethmoid sinus opacification is noted. This has decreased compared to exam of January 24, 2020. Frontal and sphenoid sinus mucosal thickening is either unchanged or slightly improved. IMPRESSION: 1. No acute intracranial findings. 2. Paranasal sinus disease, as above. ACT 112: Negative or not required by law. Electronically signed by: Dusty George M.D. 06/21/2021 8:30 PM Dictated:06/21/212026 Transcribed: 06/21/212026 CT scan - chest: Radiologist's impression: CT ANGIOGRAPHY OF THE CHEST, PULMONARY EMBOLUS PROTOCOL CLINICAL HISTORY: Lightheaded. Left-sided chest pain. COMPARISON STUDY: Chest radiographs December 25, 2019 June 21, 2021. TECHNIQUE: Following IV administration of 120 mL of Optiray, helical axial images of the chest were obtained utilizing the pulmonary embolus protocol. Maximal intensity projections and sagittal and coronal reformats were viewed on an independent 3D workstation. IV contrast was administered without complication. Automated exposure control was utilized for the study. A dose lowering technique was utilized adhering to the principles of ALARA. CT DOSE: 796.71 mGy.cm FINDINGS: No pulmonary emboli are identified. No thoracic aortic dissection is present. There is moderate cardiomegaly. No pericardial effusion is noted. Incidental note is made of an aberrant right subclavian artery. No enlarged thoracic lymph node are present. There is no consolidation to suggest pneumonia. No pneumothorax or pleural effusion is present. Mild mosaic attenuation and ground glass opacities within the lungs are noted. The liver is cirrhotic. Splenomegaly is partially imaged. IMPRESSION: 1. No pulmonary emboli identified. 2. Moderate cardiomegaly. 3. Groundglass opacities and mosaic attenuation within the lungs which could reflect atelectasis or air-trapping. No consolidation to suggest pneumonia. 4. Cirrhosis. Splenomegaly. ACT 112: Negative or not required by law. Electronically signed by: Dusty George M.D. 06/21/2021 9:00 PM Dictated:06/21/212040 Transcribed: 06/21/212056 ECG Data Indication: chest pain Rate (beats per minute): 83 Rhythm: normal sinus Findings: + PVC; no ST depression, no ST elevation or no prolonged QT MDM Narrative 1816: The patient was evaluated in room B8. A complete history and physical exam was performed Cardiac monitoring: An order was placed for continuous cardiac monitoring. The monitor shows a rate of 80 with sinus rhythm 191: Vital signs stable. Status post 1 sublingual nitroglycerin the patient states his chest pain is completely resolved. 2239: Vital signs stable. Patient continues to be chest pain-free. Labs within normal limits with exception of an elevated D-dimer. CT of the chest negative for PE. Patient will be admitted to the [facility] hospitalist team for chest pain rule out ACS Dr. Olson notified Impression & Plan Chest pain Discharge Plan Visit Data Chief Complaint: Chest Pain Stated Complaint: CHEST PAIN GOES INTO L ARM ED Provider: Mitch Lang Discharge Problem: Chest pain Patient Disposition: Being Evaluated by Hospitalist Forms Stand Alone Forms: Pending Sale To [facility], [facility] Emergency Department, Important Visit Information Prescriptions Prescriptions: No Action aspirin 81 mg tablet,chewable 81 mg PO 2XWK RF: 0 hydrocodone-acetaminophen 5-325 mg tablet 1 - 2 tab PO BID RF: 0 lisinopril 20 mg tablet 20 mg PO BID RF: 0 amlodipine 5 mg tablet 5 mg PO QAM RF: 0 montelukast 10 mg tablet 10 mg PO HS RF: 0 albuterol sulfate [Ventolin HFA] 90 mcg/actuation Hfa Aerosol Inhaler 2 puff INHALATION Q4H PRN (Reason: Shortness Of Breath Or Wheezing) RF: 0 metformin 500 mg tablet extended release 24 hr 1,000 mg PO BID RF: 0 Jardiance 25 mg tablet 25 mg PO QAM RF: 0 fluticasone propion-salmeterol 250-50 mcg/dose blister with device 1 ea INHALATION BID RF: 0 Referrals Referrals: Jude Vickers MD [Primary Care Provider] -
[2021-06-21 18:36] LABS: Basophils # (auto) 0.02 K/uL (0-0.2); Basophils % (auto) 0.3 %; Eosinophils # (auto) 0.14 K/uL (0-0.5); Eosinophils % (auto) 1.9 %; Hematocrit (blood only) 46.3 % (42-52); Hemoglobin 15.8 g/dL (14.0-18.0); Immature Granulocytes # (auto) 0.02 K/uL (0.00-0.02); Immature Granulocytes % (auto) 0.3 %; Lymphocytes # (auto) 2.29 K/uL (1.2-3.4); Lymphocytes % (auto) 31.8 %; Mean Corpuscular Hemoglobin 30.4 pg (25-34); Mean Corpuscular Hgb Conc 34.1 g/dL (32-36); Mean Corpuscular Volume 89.2 fL (80-100); Mean Platelet Volume 10.4 fL (7.4-10.4); Monocytes # (auto) 0.44 K/uL (0.11-0.59); Monocytes % (auto) 6.1 %; Neutrophils # (auto) 4.29 K/uL (1.4-6.5); Neutrophils % (auto) 59.6 %; Platelet Count 146 K/uL (130-400); RDW Coefficient of Variation 13.8 % (11.5-14.5); RDW Standard Deviation 45.1 fL (36.4-46.3); Red Blood Count 5.19 M/uL (4.7-6.1)
[2021-06-21 18:57] LABS: Troponin I < 0.03 ng/ml (0-0.04)
--- NOTE | 2021-06-21 18:58 | XRay Report ---
XR chest 1V portable CLINICAL HISTORY: Atypical chest pain. COMPARISON STUDY: Chest radiograph January 24, 2020. FINDINGS: No pneumothorax or pleural effusion is present. Mild cardiomegaly is unchanged. There is no evidence for pulmonary edema. No consolidation is identified to suggest pneumonia. Appearance of the chest is similar to prior exam. IMPRESSION: No acute cardiopulmonary findings. ACT 112: Negative or not required by law. Electronically signed by: Dusty George M.D. 06/21/2021 6:57 PM
[2021-06-21 19:01] LABS: Anion Gap 8 (3-11); BUN Creatinine Ratio 13.1 (10-20); Blood Urea Nitrogen 13 mg/dl (6-23); Calcium 9.9 mg/dl (8.5-10.1); Carbon Dioxide 26 mmol/L (21-32); Chloride 103 mmol/L (98-107); Est GFR (African American) 94.2 ml/min; Est GFR (Non-African American) 81.3 ml/min; Glucose 134 mg/dl (70-99(Fasting)); Lipase 45 U/L (11-82); Potassium 3.9 mmol/L (3.5-5.1); Sodium 137 mmol/L (136-145)
[2021-06-21 19:02] LABS: Partial Thromboplastin Ratio 0.9; Partial Thromboplastin Time 23.8 Seconds (21.0-31.0); Prothrombin Time 10.6 Seconds (9.0-12.0)
[2021-06-21 19:12] LABS: D Dimer 530 ug/L FEU (0-500)
[2021-06-21] MEDS ORDERED: OPTIRAY 320 125ml IV ONE (20:17)
--- NOTE | 2021-06-21 20:31 | CT Scan Report ---
CT OF THE HEAD WITHOUT CONTRAST CLINICAL HISTORY: dizziness COMPARISON STUDY: Head CT and CTA of the head January 24, 2020. CT DOSE: 537.48 mGy.cm TECHNIQUE: Helical axial images of the head were obtained without IV contrast. Automated exposure con trol was utilized for the study. A dose lowering technique was utilized adhering to the principles o f ALARA. FINDINGS: No acute intracranial hemorrhage, midline shift or mass effect is present. The ventricular system is unremarkable. The basal cisterns are patent. No extra-axial collections are present. There are no findings to suggest acute dural sinus thrombosis or acute territorial infarct. No significant calvarial abnormalities are present. Extensive ethmoid sinus opacification is noted. This has decreas ed compared to exam of January 24, 2020. Frontal and sphenoid sinus mucosal thickening is either unch anged or slightly improved. IMPRESSION: 1. No acute intracranial findings. 2. Paranasal sinus disease, as above. ACT 112: Negative or not required by law. Electronically signed by: Dusty George M.D. 06/21/2021 8:30 PM
--- NOTE | 2021-06-21 21:02 | CT Scan Report ---
CT ANGIOGRAPHY OF THE CHEST, PULMONARY EMBOLUS PROTOCOL CLINICAL HISTORY: Lightheaded. Left-sided chest pain. COMPARISON STUDY: Chest radiographs December 25, 2019 June 21, 2021. TECHNIQUE: Following IV administration of 120 mL of Optiray, helical axial images of the chest were o btained utilizing the pulmonary embolus protocol. Maximal intensity projections and sagittal and cor onal reformats were viewed on an independent 3D workstation. IV contrast was administered without co mplication. Automated exposure control was utilized for the study. A dose lowering technique was ut ilized adhering to the principles of ALARA. CT DOSE: 796.71 mGy.cm FINDINGS: No pulmonary emboli are identified. No thoracic aortic dissection is present. There is mod erate cardiomegaly. No pericardial effusion is noted. Incidental note is made of an aberrant right vega bclavian artery. No enlarged thoracic lymph node are present. There is no consolidation to suggest pn eum[place]. No pneumothorax or pleural effusion is present. Mild mosaic attenuation and ground glass opa cities within the lungs are noted. The liver is cirrhotic. Splenomegaly is partially imaged. IMPRESSION: 1. No pulmonary emboli identified. 2. Moderate cardiomegaly. 3. Groundglass opacities and mosaic attenuation within the lungs which could reflect atelectasis or a ir-trapping. No consolidation to suggest pneumonia. 4. Cirrhosis. Splenomegaly. ACT 112: Negative or not required by law. Electronically signed by: Dusty George M.D. 06/21/2021 9:00 PM
[2021-06-21] MEDS ORDERED: NITROGLYCERIN SL 0.4 MG/TAB TAB SL PRN (23:58)
[2021-06-21] MEDS ORDERED: POLYETHYLENE (MIRALAX) 17 GM PACK PO PRN (23:58)
[2021-06-21] MEDS ORDERED: ALBUTEROL HFA 8 GM INHALER INH PRN (23:58)
[2021-06-21] MEDS ORDERED: ACETAMINOPHEN 325 MG TAB PO PRN (23:58)
[2021-06-21] MEDS ORDERED: ONDANSETRON INJ 2 MG/ML 2 ML VIAL IV PRN (23:58)
--- NOTE | 2021-06-22 00:10 | History and Physical Report ---
DATE OF ADMISSION: 06/21/2021. CHIEF COMPLAINT: Chest pain and dizziness. 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 The patient says he was driving his car when he felt dizziness, profusely sweating and blurred vision,and chest tightness when he pulled over the car .. After feeling a little better, he drove home and called his and the brought him to the ER. He had some nitro and after that patient says he slept. Currently still has some chest tightness and still feeling dizzy and some blurred visions, but that is getting better. Denies any headache. Has some runny nose, occasional cough, no difficulty swallowing. Appetite is okay. Currently no shortness of breath, no nausea, no abdominal pain. Normal bowel and bladder movements. Currently, he is feeling very weak. Hemodynamics are stable. ALLERGIES: BACTRIM, CRESTOR, TRAMADOL. PAST MEDICAL HISTORY: As mentioned above. PAST SURGICAL HISTORY: Bladder aspiration with suprapubic catheter, colonoscopy, cystoscopy, EGD, excision of mucosa vestibule of mouth, reconstruction of urethra, repair of hydrocele, surgical removal of erupted tooth and bone. MEDICATIONS: The patient is on albuterol 2 puffs inhalation q. 4 hours p.r.n., amlodipine 5 mg p.o. a.m., aspirin 81 mg p.o. 2 times a week, Jardiance 25 mg p.o. a.m., fluticasone/salmeterol 1 puff b.i.d., hydrocodone/acetaminophen 1-2 tablets p.o. b.i.d., lisinopril 20 mg p.o. b.i.d., metformin 1000 mg p.o. b.i.d., montelukast 10 mg p.o. at bedtime. FAMILY HISTORY: Significant for brother has lung cancer, mother has breast cancer, father had hypertension. SOCIAL HISTORY: . He says he currently smokes 1-2 cigarettes a day, seems to have smoked 3/4 pack a day for 44 years in the past. No alcohol use. No drug use. REVIEW OF SYSTEMS: As per HPI. Rest of the review of systems is negative. PHYSICAL EXAMINATION: GENERAL: The patient is of moderate build, not in acute distress. VITAL SIGNS: Temperature 36.6, pulse 79, respiratory rate 17, blood pressure 138/73, oxygen 97% on room air. HEENT: Pupils equal, round and reactive to light. Oral mucosa moist. NECK: No JVD. No neck masses. CARDIOVASCULAR: S1 and S2 heard. Regular rate and rhythm. No murmur, no gallop. RESPIRATORY SYSTEM: Normal AP diameter. No accessory muscle use. No wheezing, no crackles. ABDOMEN: Soft, bowel sounds present, nontender, no distention. CENTRAL NERVOUS SYSTEM: Cranial nerves II-XII grossly intact. Power 5/5 in all extremities. Coordination of movements normal. No pronator drift. Sensation is intact. Speech is clear. No facial droop. Insight is okay. Obeys commands. EXTREMITIES: No edema, no erythema. LABORATORY DATA: WBC 7.2, hemoglobin 15.8, hematocrit 46.3, platelets 146. PT 10.6, INR 1, APTT 23.9. D-dimer 530. Sodium 137, potassium 3.9, chloride 103, bicarb 26, BUN 13, creatinine 0.9, serum glucose 134, calcium 9.9, magnesium 2. Troponin I less than 0.03, lipase 45. SARS-CoV-2 RNA rapid test negative. IMAGING DATA: CT of the head without contrast, no acute findings, paranasal sinus disease. CT of the chest, no PE, moderate cardiomegaly, ground-glass opacities, most likely attenuation within the lungs, which could reflect atelectasis or air trapping, no consolidation to suggest pneumonia, cirrhosis, splenomegaly. Chest x-ray, no acute cardiopulmonary findings. EKG: Sinus rhythm with fusion complexes and premature atrial complexes at a rate of 83, left anterior fascicular block. ASSESSMENT AND PLAN: This is a 61-year-old male who presents with dizziness and chest pain. 1. Chest pain, chest tightness: Rule out acute coronary syndrome. Initial troponin is negative. Follow serial enzymes, repeat EKG in the a.m. Keep n.p.o. after midnight and echocardiogram in the a.m. and consult cardiology for further recommendation. Monitor in the tele floor. 2. Dizziness: Initial CT scan of the head is okay. D-dimer is elevated and CTA of the chest is okay. No pulmonary embolism. Will check orthostatics and we will place him on gentle fluids and monitor. 3. History of chronic obstructive pulmonary disease: Currently smoking 1 or 2 cigarettes daily. Continue his home inhaler. 4. History of diabetes: Hold metformin and Jardiance. Placed on insulin sliding scale. Follow the blood sugars, follow the HbA1c levels. 5. Hypertension: Continue his lisinopril and amlodipine. Will monitor the blood pressure. 6. History of hepatitis C virus: This was cured after antiviral therapy. History of liver cirrhosis, compensated. Will monitor. Needs followup. 7. Deep venous thrombosis prophylaxis: Sequential compression devices for now. DISPOSITION: Observation in [facility] tele. PT/OT prior to discharge. Social service to help with discharge planning. Level 1 full code. Job ID: [id number]
[2021-06-22] MEDS ORDERED: GLUCOSE 10 TABS/TUBE PO PRN (00:30)
[2021-06-22] MEDS ORDERED: GLUCOSE 40% GEL 15 GM TUBE PO PRN (00:30)
[2021-06-22] MEDS ORDERED: CARBOHYDRATES FOR HYPOGLYCEMIA PO PRN (00:30)
[2021-06-22] MEDS ORDERED: GLUCAGON FOR INJ 1 MG VIAL IM PRN (00:30)
[2021-06-22] MEDS ORDERED: DEXTROSE 50% 50 ML SYRINGE IV PRN (00:30)
[2021-06-22] MEDS ORDERED: SODIUM CHLORIDE 0.9% 1000ML 1,000 ML IV SCH (00:45)
[2021-06-22] MEDS: HYDROCODONE/ACETAMOPHEN 5/325MG TAB PO PRN ×3 (02:34→18:35)
[2021-06-22] MEDS: lisinopril 20 MG TAB PO SCH ×3 (02:35→20:50)
[2021-06-22 05:53] LABS: Basophils # (auto) 0.02 K/uL (0-0.2); Basophils % (auto) 0.4 %; Eosinophils # (auto) 0.14 K/uL (0-0.5); Eosinophils % (auto) 3.1 %; Hematocrit (blood only) 41.8 % (42-52); Hemoglobin 14.3 g/dL (14.0-18.0); Immature Granulocytes # (auto) 0.01 K/uL (0.00-0.02); Immature Granulocytes % (auto) 0.2 %; Lymphocytes # (auto) 1.26 K/uL (1.2-3.4); Lymphocytes % (auto) 28.3 %; Mean Corpuscular Hemoglobin 30.6 pg (25-34); Mean Corpuscular Hgb Conc 34.2 g/dL (32-36); Mean Corpuscular Volume 89.5 fL (80-100); Mean Platelet Volume 9.9 fL (7.4-10.4); Monocytes # (auto) 0.24 K/uL (0.11-0.59); Monocytes % (auto) 5.4 %; Neutrophils # (auto) 2.79 K/uL (1.4-6.5); Neutrophils % (auto) 62.6 %; Platelet Count 108 K/uL (130-400); RDW Coefficient of Variation 13.9 % (11.5-14.5); RDW Standard Deviation 45.5 fL (36.4-46.3); Red Blood Count 4.67 M/uL (4.7-6.1); White Blood Count 4.46 K/uL (4.8-10.8)
[2021-06-22 06:25] LABS: Troponin I < 0.03 ng/ml (0-0.04)
[2021-06-22 06:28] LABS: Anion Gap 5 (3-11); BUN Creatinine Ratio 16.3 (10-20); Blood Urea Nitrogen 14 mg/dl (6-23); Carbon Dioxide 27 mmol/L (21-32); Chloride 106 mmol/L (98-107); Chol HDL Ratio 3.8 (0-5); Cholesterol 136 mg/dl (0-200); Creatinine Clr Calc Pharmacy 102.8 ml/min; Est GFR (African American) 107.7 ml/min; Est GFR (Non-African American) 92.9 ml/min; Glucose 91 mg/dl (70-99(Fasting)); HDL Cholesterol 36 mg/dl; LDL Cholesterol Calculated 80 mg/dl; Sodium 138 mmol/L (136-145); Triglycerides 101 mg/dl (0-150); VLDL Cholesterol 20 mg/dl (0-30)
[2021-06-22] MEDS: INSULIN ASPART PER UNIT SC SCH ×4 (06:43→20:35)
[2021-06-22] MEDS ORDERED: HYDROCODONE/ACETAMOPHEN 5/325MG TAB PO SCH (09:00)
[2021-06-22] MEDS: ASPIRIN 81 MG ECTAB PO SCH (09:26)
[2021-06-22] MEDS: amLODIPine BESYLATE 5 MG TAB PO SCH (09:26)
[2021-06-22] MEDS: ESCITALOPRAM OXALATE 10 MG TAB PO SCH (09:26)
[2021-06-22] MEDS: FLUTICASONE/VILANTEROL 200/25MCG 14 PUFFS/INHALER INH SCH (09:27)
[2021-06-22 09:31] LABS: Estimated Average Glucose 128 mg/dl; Hemoglobin A1C 6.1 % (4.5-5.6)
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
[2021-06-22] MEDS: carvediloL 3.125 MG TAB PO SCH ×2 (12:21→20:49)
[2021-06-22] MEDS ORDERED: Nursing to Pharmacy Communication SCH (14:00)
--- NOTE | 2021-06-22 16:06 | Hospitalist Progress Note ---
Date of Service June 22, 2021 Assessment & Plan Admission and Anticipated Discharge Date Admission Date: June 21, 2021 Supervising Physician Co-Signing Physician Notes 61 year old male who presented to the ED yesterday with dizziness, confusion and chest pain Confusion/dizziness- unclear etiology. Ammonia normal, TSH normal, no hypoxia, BG normal. CT head with no acute abnormality. Orthostatics negative. States he is better but still feels foggy. Snores and likely has sleep apnea contributing. Will check ABG and overnight oxygen desaturation study. Recommend OP sleep study. Chest pain- none currently. tropx3 negative, EKG with no acute ischemic changes, Tele with some PVCs. Echo unremarkable. CTA chest with no PE or pneumonia. Cardio added low dose coreg. Recommended OP stress test and 14 day zio monitor by cardiology. Left neck/shoulder pain- likely from degenerative changes. Gives similar history on right resolved with steroid injection. Will get Xray C spine and left shoulder to evaluate. HTN- continue lisinopril and amlodipine. Coreg added. DM-2- A1c 6.1%. Holding jardiance and metformin. On SSI. Hep C cirrhosis- Compensated. Hep C was treated. Ammonia and LFTs normal. COPD- not in exacerbation, continue home inhalers. Smokes upto 3 cigarettes a day. DVT prophylaxis- lovenox Update- Updated daughter and at bedside Dispo- Likely discharge tomorrow. Overnight oxygen saturatioon study pending. Will get PT OT evaluation. Subjective He says he is still not clear in the head, he still feels groggy and confused. Also has left neck and upper extremity pain which is not resolved, states he had similar pain in right side which resolved after steroid injection few months back. He is a construction plant operator. He denies any chest pain. No fever, chills, chest pain, shortness of breath. States he snores and had sleep study done about 15 years ago but doesn't recall the results- he does not use CPAP. Also says no bowel movement today and would like a stool softener. Physical Exam Physical Exam: General: Sitting comfortably in bed, not in distress, on room air HEENT: EOMI, JOCELYNE, MMM. Mild tenderness on palpation of left neck and shoulder. Chest: Clear breath sounds bilaterally, no wheezes or crackles CVS: Regular rate and rhythm, normal heart sounds, no murmur Abdomen: Soft, non tender, not distended, normal bowel sounds Neuro: Awake, alert, oriented, conversing well, non focal. Strength 5/5, s ensation intact in bilateral upper extremity Extremities: No cyanosis, clubbing or edema Results & Data Results & Data ([facility]) Vital Signs (Past 12 Hours) Vital Signs Temp Pulse Pulse Resp BP Pulse Ox 06/22/21 10:53 37.0 C 74 16 156/82 H 95 06/22/21 07:56 36.4 C L 78 16 152/78 H 95 06/22/21 06:17 67 Laboratory Results Short CBC 06/21/21 06/22/21 Range/Units 18:19 05:27 WBC 7.20 4.46 L (4.8-10.8) K/uL Hgb 15.8 14.3 (14.0-18.0) g/dL Hct 46.3 41.8 L (42-52) % Plt Count 146 108 L (130-400) K/uL BMP 06/21/21 06/22/21 18:19 05:27 Sodium 137 138 Potassium 3.9 4.0 Chloride 103 106 Carbon Dioxide 26 27 BUN 13 14 Creatinine 0.99 0.86 Glucose 134 H 91 Calcium 9.9 9.0 Cardiac Enzymes 06/21/21 06/22/21 06/22/21 Range/Units 18:19 01:05 05:27 Troponin I < 0.03 < 0.03 < 0.03 (0-0.04) ng/ml 06/22/21 Range/Units 09:32 Troponin I < 0.03 (0-0.04) ng/ml Medications Administered Current Inpatient Medications Acetaminophen (Acetaminophen 325 Mg Tab) 650 mg PO Q4H PRN PRN Reason: Pain or Fever Stop: 07/21/21 23:57 Hydrocodone Bitart/Acetaminophen (Hydrocodone/Acetamophen 5/325mg Tab) 1 tab PO QID PRN PRN Reason: Pain Stop: 07/06/21 08:59 Last Admin: 06/22/21 09:25 Dose: 1 tab Documented by: Albuterol (Albuterol Hfa 8 Gm Inhaler) 2 puffs INH Q4H PRN PRN Reason: Shortness Of Breath Or Wheezin Stop: 07/21/21 23:57 Amlodipine Besylate (Amlodipine Besylate 5 Mg Tab) 5 mg PO QAM [facility] Stop: 07/22/21 08:59 Last Admin: 06/22/21 09:26 Dose: 5 mg Documented by: Aspirin (Aspirin 81 Mg Ectab) 81 mg PO QAM [facility] Stop: 07/22/21 08:59 Last Admin: 06/22/21 09:26 Dose: 81 mg Documented by: Carvedilol (Carvedilol 3.125 Mg Tab) 3.125 mg PO BID [facility] Stop: 07/22/21 11:29 Last Admin: 06/22/21 12:21 Dose: 3.125 mg Documented by: Dextrose (Dextrose 50% 50 Ml Syringe) 25 - 50 ml IV UD PRN; Protocol PRN Reason: Hypoglycemia Protocol Stop: 07/22/21 00:29 Escitalopram Oxalate (Escitalopram Oxalate 10 Mg Tab) 10 mg PO QAM [facility] Stop: 07/22/21 08:59 Last Admin: 06/22/21 09:26 Dose: 10 mg Documented by: Fluticasone/Vilanterol (Fluticasone/Vilanterol 200/25mcg 14 Puffs/Inhaler) 1 puffs INH DAILY MELISSA Stop: 07/22/21 08:59 Last Admin: 06/22/21 09:27 Dose: 1 puffs Documented by: Glucagon (Glucagon For Inj 1 Mg Vial) 1 mg IM UD PRN; Protocol PRN Reason: Hypoglycemia Protocol Stop: 07/22/21 00:29 Glucose (Glucose 40% Gel 15 Gm Tube) 15 - 30 gm PO UD PRN; Protocol PRN Reason: Hypoglycemia Protocol Stop: 07/22/21 00:29 Glucose (Glucose 10 Tabs/Tube) 4 - 8 tabs PO UD PRN; Protocol PRN Reason: Hypoglycemia Protocol Stop: 07/22/21 00:29 Insulin Aspart (Insulin Aspart Per Unit) 0 units SC ACHS [facility] Stop: 07/22/21 05:59 Lisinopril (Lisinopril 20 Mg Tab) 20 mg PO BID [facility] Stop: 07/22/21 08:59 Last Admin: 06/22/21 09:26 Dose: 20 mg Documented by: Miscellaneous (Carbohydrates For Hypoglycemia ) 15 - 30 gm PO UD PRN PRN Reason: Hypoglycemia Treatment Stop: 07/22/21 00:29 Montelukast Sodium (Montelukast Sodium 10 Mg Tablet) 10 mg PO HS MELISSA Stop: 07/22/21 20:59 Nitroglycerin (Nitroglycerin Sl 0.4 Mg/Tab Tab) 0.4 mg SL UD PRN PRN Reason: Chest Pain Stop: 07/21/21 23:57 Ondansetron HCl (Ondansetron Inj 2 Mg/Ml 2 Ml Vial) 4 mg IV Q6H PRN PRN Reason: Nausea Stop: 07/21/21 23:57 Polyethylene Glycol (Polyethylene (Miralax) 17 Gm Pack) 17 gm PO DAILY PRN PRN Reason: Constipation Stop: 07/21/21 23:57
--- NOTE | 2021-06-22 17:15 | XRay Report ---
XR shoulder LT min 2V routine CLINICAL HISTORY: left neck/shoulder pain COMPARISON: Left shoulder and left humerus radiograph January 24, 2020. FINDINGS: Alignment of the left shoulder is anatomic. Note is made of a lucency within the greater t uberosity. This may reflect a subacute nondisplaced fracture. Bony irregularity of the inferior gleno id is not acute. Moderate degenerative changes of the left shoulder are present. IMPRESSION: 1. Lucency within the greater tuberosity of the left humerus. This was not present on prior exam and may reflect a subacute fracture. 2. Moderate degenerative changes of the left shoulder. ACT 112: Negative or not required by law. Electronically signed by: Dusty George M.D. 06/22/2021 5:14 PM
[2021-06-22 17:52] LABS: Base Excess ABG 3.2 mEq/L (-9-1.8); HCO3 ABG 27 mmol/L (19-24); Oxygen Saturation ABG 96.7 % (90-95); PCO2 ABG 40 mmHg (35-46); PO2 ABG 83 mmHg (80-95); pH ABG 7.45 (7.35-7.45)
[2021-06-22 17:53] LABS: Allen Test POS (Pos)
--- NOTE | 2021-06-22 17:53 | XRay Report ---
CERVICAL SPINE 7 VIEWS CLINICAL HISTORY: Left neck and shoulder pain. FINDINGS: AP, lateral, bilateral oblique, odontoid, flexion, and extension views of the cervical spin e are compared to study dated 02/26/2014. The skeletal structures are osteopenic. There is no radiogr aphic evidence of fracture or subluxation involving the cervical spine. Vertebral body height is main tained of the cervical spine. There is minimal anterolisthesis at C4-C5. Alignment is otherwise prese rved. There is no inducible bony subluxation on the flexion/extension views. There is straightening o f the cervical lordosis with reversal centered at C4-C5. Anterior osteophytes are seen throughout. Th e odontoid process and lateral masses appear intact as seen on the open-mouth view. The atlantodental articulation is maintained noting productive degenerative change. The spinous processes are intact. Multilevel facet arthropathy is noted on the frontal view. Multilevel bilateral neural foraminal sten osis is seen on the oblique views, greatest in the mid cervical region. There is moderate disc space narrowing at C6-C7. Moderate disc space narrowing is seen at the remaining cervical levels. Tiny post erior disc osteophyte complexes at C5-C6 and C6-C7 may contribute to minimal acquired compromise of t he central canal. The prevertebral soft tissues are within normal limits. There is advanced atheroscl erotic calcification of the carotid bulbs. IMPRESSION: 1. No acute bony abnormality is seen involving the cervical spine. 2. Osteopenia and spondylotic change as above. Dictated: 06/22/2021 5:12 PM Transcribed: 06/22/2021 5:49 PM Janet [id number] NE_Oliverio Electronically signed by: Tommie Romero M.D. 06/22/2021 5:52 PM
[2021-06-22] MEDS: DOCUSATE SODIUM/SENNA 50/8.6MG TAB PO SCH (20:54)
[2021-06-22] MEDS ORDERED: carvediloL 6.25 MG TAB PO SCH (21:00)
[2021-06-22] MEDS ORDERED: MONTELUKAST SODIUM 10 MG TABLET PO SCH (21:00)
--- NOTE | 2021-06-22 21:59 | Electrocardiogram Report ---
Test Reason : Blood Pressure : / mmHG Vent. Rate : 083 BPM Atrial Rate : 083 BPM P-R Int : 192 ms QRS Dur : 116 ms QT Int : 404 ms P-R-T Axes : 025 -63 070 degrees QTc Int : 474 ms Sinus rhythm with Fusion complexes and Premature atrial complexes with Aberrant conduction Left anterior fascicular block Abnormal ECG When compared with ECG of 24-JAN-2020 14:42, Fusion complexes are now Present Premature ventricular complexes are no longer Present Aberrant conduction is now Present Confirmed by Ariel Rivero ([id number]) on 06/22/2021 9:58:56 PM Referred By: REFERRED SELF Confirmed By:Ariel Rivero
--- NOTE | 2021-06-22 22:11 | Electrocardiogram Report ---
Test Reason : Blood Pressure : / mmHG Vent. Rate : 076 BPM Atrial Rate : 076 BPM P-R Int : 192 ms QRS Dur : 104 ms QT Int : 412 ms P-R-T Axes : 021 -65 061 degrees QTc Int : 463 ms Sinus rhythm with occasional Premature ventricular complexes Left anterior fascicular block Abnormal ECG When compared with ECG of 21-JUN-2021 18:16, Fusion complexes are no longer Present Premature ventricular complexes are now Present Aberrant conduction is no longer Present Confirmed by Ariel Rivero ([id number]) on 06/22/2021 10:10:50 PM Referred By: REFERRED SELF Confirmed By:Ariel Rivero
[2021-06-23] MEDS: HYDROCODONE/ACETAMOPHEN 5/325MG TAB PO PRN (05:44)
[2021-06-23 06:37] LABS: Basophils # (auto) 0.01 K/uL (0-0.2); Basophils % (auto) 0.2 %; Eosinophils # (auto) 0.18 K/uL (0-0.5); Eosinophils % (auto) 2.9 %; Hematocrit (blood only) 45.1 % (42-52); Hemoglobin 15.1 g/dL (14.0-18.0); Lymphocytes # (auto) 1.64 K/uL (1.2-3.4); Lymphocytes % (auto) 26.4 %; Mean Corpuscular Hemoglobin 29.7 pg (25-34); Mean Corpuscular Hgb Conc 33.5 g/dL (32-36); Mean Corpuscular Volume 88.8 fL (80-100); Mean Platelet Volume 10.7 fL (7.4-10.4); Monocytes # (auto) 0.36 K/uL (0.11-0.59); Monocytes % (auto) 5.8 %; Neutrophils # (auto) 4.03 K/uL (1.4-6.5); Neutrophils % (auto) 64.7 %; Platelet Count 112 K/uL (130-400); RDW Coefficient of Variation 13.6 % (11.5-14.5); RDW Standard Deviation 44.4 fL (36.4-46.3); Red Blood Count 5.08 M/uL (4.7-6.1); White Blood Count 6.22 K/uL (4.8-10.8)
[2021-06-23 06:59] LABS: Troponin I < 0.03 ng/ml (0-0.04)
[2021-06-23 07:00] LABS: Anion Gap 6 (3-11); BUN Creatinine Ratio 16.3 (10-20); Blood Urea Nitrogen 13 mg/dl (6-23); Calcium 9.4 mg/dl (8.5-10.1); Carbon Dioxide 27 mmol/L (21-32); Chloride 101 mmol/L (98-107); Creatinine Clr Calc Pharmacy 109.8 ml/min; Est GFR (Non-African American) 95.7 ml/min; Glucose 101 mg/dl (70-99(Fasting)); Potassium 4.3 mmol/L (3.5-5.1); Sodium 134 mmol/L (136-145)
[2021-06-23] MEDS: INSULIN ASPART PER UNIT SC SCH (08:22)
[2021-06-23] MEDS: FLUTICASONE/VILANTEROL 200/25MCG 14 PUFFS/INHALER INH SCH (08:23)
[2021-06-23] MEDS: DOCUSATE SODIUM/SENNA 50/8.6MG TAB PO SCH (08:23)
[2021-06-23] MEDS: lisinopril 20 MG TAB PO SCH (08:23)
[2021-06-23] MEDS: carvediloL 3.125 MG TAB PO SCH (08:23)
[2021-06-23] MEDS: ASPIRIN 81 MG ECTAB PO SCH (08:27)
[2021-06-23] MEDS: ESCITALOPRAM OXALATE 10 MG TAB PO SCH (08:27)
[2021-06-23] MEDS: amLODIPine BESYLATE 5 MG TAB PO SCH (08:27)
--- NOTE | 2021-06-23 10:43 | Electrocardiogram Report ---
Test Reason : Blood Pressure : / mmHG Vent. Rate : 071 BPM Atrial Rate : 071 BPM P-R Int : 186 ms QRS Dur : 094 ms QT Int : 434 ms P-R-T Axes : 017 -70 057 degrees QTc Int : 471 ms Sinus rhythm with frequent Premature ventricular complexes in a pattern of bigeminy Left anterior fascicular block Abnormal ECG When compared with ECG of 22-JUN-2021 05:48, No significant change was found Confirmed by Robert Kuo ([id number]) on 06/23/2021 10:42:30 AM Referred By: REFERRED SELF Confirmed By:Mario Kuo
--- NOTE | 2021-06-23 16:32 | Discharge Summary ---
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 The patient says he was driving his car when he felt dizziness, profusely sweating and blurred vision,and chest tightness when he pulled over the car .. After feeling a lit tle better, he drove home and called his and the brought him to the ER. He had some nitro and after that patient says he slept. Currently still has some chest tightness and still feeling dizzy and some blurred visions, but that is getting better. Denies any headache. Has some runny nose, occasional cough, no difficulty swallowing. Appetite is okay. Currently no shortness of breath, no nausea, no abdominal pain. Normal bowel and bladder movements. Currently, he is feeling very weak. Hemodynamics are stable. Admission Exam Per Admitting Provider GENERAL: The patient is of moderate build, not in acute distress. VITAL SIGNS: Temperature 36.6, pulse 79, respiratory rate 17, blood pressure 138/73, oxygen 97% on room air. HEENT: Pupils equal, round and reactive to light. Oral mucosa moist. NECK: No JVD. No neck masses. CARDIOVASCULAR: S1 and S2 heard. Regular rate and rhythm. No murmur, no gal lop. RESPIRATORY SYSTEM: Normal AP diameter. No accessory muscle use. No wheezing, no crackles. ABDOMEN: Soft, bowel sounds present, nontender, no distention. CENTRAL NERVOUS SYSTEM: Cranial nerves II-XII grossly intact. Power 5/5 in all extremities. Coordination of movements normal. No pronator drift. Sensation is intact. Speech is clear. No facial droop. Insight is okay. Obeys comma nds. EXTREMITIES: No edema, no erythema. Principal Diagnosis Chest pain, confusion Discharge Exam General: Sitting comfortably in bed, not in distress, on room air HEENT: EOMI, JOCELYNE, MMM. Mild tenderness on palpation of left neck and shoulder. Chest: Clear breath sounds bilaterally, no wheezes or crackles CVS: Regular rate and rhythm, normal heart sounds, no murmur Abdomen: Soft, non tender, not distended, normal bowel sounds Neuro: Awake, alert, oriented, conversing well, non focal. Strength 5/5, sensation intact in bilateral upper extremity Extremities: No cyanosis, clubbing or edema Discharge Data Allergies Allergy/AdvReac Type Severity Reaction Status Date / Time sulfamethoxazole Allergy Intermediate RASH, Verified 06/21/21 19:23 UPSET STOMACH trimethoprim Allergy Intermediate RASH, Verified 06/21/21 19:23 UPSET STOMACH tramadol AdvReac Intermediate SHAKEY, Verified 06/21/21 19:23 NERVOUS Consultations 06/21/21 21:19 ED Decision to Admit Stat 06/22/21 08:00 Consult Cardiology Routine Ordered Studies 06/21/21 19:17 CT angio chest PE protocol Stat CT head/brain wo con Stat Hospital Course (1) Chest pain: (2) Confusion: 61 year old male who presented to the ED yesterday with dizziness, confusion and chest pain Confusion/dizziness- unclear etiology. Ammonia normal, TSH normal, no hypoxia, BG normal. ABG with no hypoxia or hypercarbia. Overnight pulse oximetry not significant. CT head with no acute abnormality. Orthostatics negative. States he feels much better but not completely back to baseline yet. Recommend OP sleep study. Patient ambulating independently and without issues. No need for PT/OT evaluation. Chest pain- none currently. tropx3 negative, EKG with no acute ischemic changes, Tele with some PVCs. Echo unremarkable. CTA chest with no PE or pneumonia. Cardio added low dose coreg. Recommended OP stress test and 14 day zio monitor by cardiology. Left neck/shoulder pain- likely from degenerative changes. Gives similar history on right resolved with steroid injection. Xray c spine and Xray left shoulder with degenerative changes- full range of motion noted. Recommend OP ortho follow up. HTN- continue lisinopril and amlodipine. Coreg added. DM-2- A1c 6.1%.Continue jardiance and metformin. Hep C cirrhosis- Compensated. Hep C was treated. Ammonia and LFTs normal. COPD- not in exacerbation, continue home inhalers. Smokes upto 3 cigarettes a day. Total Time Total Time Spent Total Time Spent (In Minutes): 38 Discharge Plan Discharge Items Patient Disposition: Home - Self-Care Reason For Visit: CHEST PAIN Discharge Diagnosis: Chest pain, Confusion Activity: Resume your previous activity Non-emergency contact: Primary Care Provider and Staking Technician Call non-emergency contact if: you have any medication questions and your symptoms worsen Follow-up/Referrals: Jude Vickers MD [Primary Care Provider] - Diet: Regular Addtl Attending Provider Instructions: Coreg has been added for the PVCs and blood pressure Follow up with cardio for stress test and zio monitor Recommend sleep study Follow up with orthopedics Pending Studies at Discharge: No Stand-Alone Forms: My [facility] [email or web address], Smoking Cessation Medications and DC Order Prescriptions: New carvedilol 3.125 mg Tablet 3.125 mg PO BID Qty: 60 RF: 0 Continued aspirin 81 mg tablet,chewable 81 mg PO 2XWK RF: 0 hydrocodone-acetaminophen 5-325 mg tablet 1 - 2 tab PO BID RF: 0 lisinopril 20 mg tablet 20 mg PO BID RF: 0 amlodipine 5 mg tablet 5 mg PO QAM RF: 0 montelukast 10 mg tablet 10 mg PO HS RF: 0 albuterol sulfate [Ventolin HFA] 90 mcg/actuation Hfa Aerosol Inhaler 2 puff INHALATION Q4H PRN (Reason: Shortness Of Breath Or Wheezing) RF: 0 metformin 500 mg tablet extended release 24 hr 1,000 mg PO BID RF: 0 Jardiance 25 mg tablet 25 mg PO QAM RF: 0 fluticasone propion-salmeterol 250-50 mcg/dose blister with device 1 ea INHALATION BID RF: 0 Discharge Orders: Discharge Order (Routine); Ordered 06/23/21 Ordered By: Abisai Escalona Admission Data Admit Date/Time: 06/21/21 22:38 Attending Provider: Abisai Escalona Admit Provider: Eddie Olson Primary Care Provider: Jude Vickers Other Providers: Eddie Olson ; Chepe Hall ; Raymond Crain ; Lan Toledo ; David Weeks ; Gianni Beavers ; Jude Estrada ; Brenda Mcduffie ; Estefany Sumner ; Brooklyn Camacho ; Jimmie Hernandez Other Interventions: Discharge Summary Assessment (RN) Last Done: 06/23/21 11:08 Supervising Physician Co-Signing Physician Notes 61 year old male who presented to the ED yesterday with dizziness, confusion and chest pain Confusion/dizziness- unclear etiology. Ammonia normal, TSH normal, no hypoxia, BG normal. CT head with no acute abnormality. Orthostatics negative. States he is better but still feels foggy. Snores and likely has sleep apnea contributing. Will check ABG and overnight oxygen desaturation study. Recommend OP sleep study. Chest pain- none currently. tropx3 negative, EKG with no acute ischemic changes, Tele with some PVCs. Echo unremarkable. CTA chest with no PE or pneumonia. Cardio added low dose coreg. Recommended OP stress test and 14 day zio monitor by cardiology. Left neck/shoulder pain- likely from degenerative changes. Gives similar history on right resolved with steroid injection. Will get Xray C spine and left shoulder to evaluate. HTN- continue lisinopril and amlodipine. Coreg added. DM-2- A1c 6.1%. Holding jardiance and metformin. On SSI. Hep C cirrhosis- Compensated. Hep C was treated. Ammonia and LFTs normal. COPD- not in exacerbation, continue home inhalers. Smokes upto 3 cigarettes a day. DVT prophylaxis- lovenox Update- Updated daughter and at bedside Dispo- Likely discharge tomorrow. Overnight oxygen saturatioon study pending. Will get PT OT evaluation.
== END 2021-06-23 11:42 | disposition home or self-care (01) ==
LOC: ED 18:10 → 2N 18:10